=== PATIENT | male | born 1990 | race Caucasian/White ===

== ENCOUNTER 2022-05-17 15:37 | Emergency (ER) | payer MEDICARE ==
[2022-05-17 19:09] LABS: ACETAMINOPHEN 0 ug/mL (10-30); ESTIMATED GFR 104 mL/min (>60)
== END 2022-05-17 20:30 | disposition home or self-care (01) ==
LOC: JD.ED 15:37
DX: Z13.89 Encounter for screening for other disorder (principal); Z88.0 Allergy status to penicillin
CPT/HCPCS: 36415; 80053; 80143; 80179; 80306; 80307; 84443; 85025; 86140; 99283

== ENCOUNTER 2022-06-22 10:28 | Emergency (ER) | payer MEDICARE ==
[2022-06-22 13:17] LABS: CORONAVIRUS COVID-19 NAA NEGATIVE (NEGATIVE)
[2022-06-22] MEDS ORDERED: Sodium Chloride 0.9% 1,000 ML IV ONE (13:23)
[2022-06-22] MEDS ORDERED: Sodium Chloride 0.9% 10 ML Syringe FLUSH PRN (13:23)
[2022-06-22] MEDS ORDERED: HYDROmorphone 0.5 MG/0.5 ML Syringe IVPUSH ONE ×2 (13:23→16:01)
[2022-06-22] MEDS ORDERED: Sodium Chloride 0.9% 10 ML Syringe FLUSH ONE (14:13)
[2022-06-22] MEDS ORDERED: Iopamidol 612 MG/ML 100 ML Bottle IVPUSH ONE (14:13)
== END 2022-06-22 17:00 | disposition home or self-care (01) ==
LOC: JD.ED 10:28
DX: K57.32 Diverticulitis of large intestine without perforation or abscess without bleeding (principal); F17.210 Nicotine dependence, cigarettes, uncomplicated; Z88.0 Allergy status to penicillin; Z20.822 Contact with and (suspected) exposure to COVID-19
CPT/HCPCS: 0240U; 36415; 74177; 80053; 81003; 83605; 83735; 85025; 86140; 96361; 96374; 96376; 99284; J1170; J3490; J7030; Q9967

== ENCOUNTER 2022-07-18 21:33 | Emergency (ER) | payer MEDICARE ==
[2022-07-18] MEDS ORDERED: Sodium Chloride 0.9% 10 ML Syringe FLUSH PRN (21:58)
[2022-07-18] MEDS ORDERED: LORazepam 2 MG/ML SDV IVPUSH ONE ×2 (21:59→23:44)
[2022-07-18] MEDS ORDERED: Potassium Chloride 20 MEQ Tab.ER PO ONE (23:45)
[2022-07-19] MEDS ORDERED: LORazepam 2 MG/ML SDV IVPUSH ONE ×3 (00:34→05:59)
[2022-07-19] MEDS ORDERED: Sodium Chloride 0.9% 1,000 ML IV ONE (02:57)
[2022-07-19] MEDS ORDERED: Diltiazem 25 MG/5 ML SDV IVPUSH ONE (03:40)
== END 2022-07-19 09:28 ==
LOC: JD.ED 21:33
DX: T43.622A Poisoning by amphetamines, intentional self-harm, initial encounter (principal); F20.89 Other schizophrenia; Z88.0 Allergy status to penicillin; Z20.822 Contact with and (suspected) exposure to COVID-19
CPT/HCPCS: 36415; 80053; 80143; 80179; 80306; 80307; 84443; 85025; 93005; 96361; 96374; 96375; 96376; 99285; A9270; J2060; J3490; J7030; U0002; 93010

== ENCOUNTER 2022-08-09 11:29 | Emergency (ER) | payer MEDICARE ==
[2022-08-09] MEDS ORDERED: LORazepam 2 MG/ML SDV IM ONE (15:06)
== END 2022-08-09 17:00 | disposition other institution (70) ==
LOC: JD.ED 11:29
DX: F20.89 Other schizophrenia (principal); Z20.822 Contact with and (suspected) exposure to COVID-19; Z88.0 Allergy status to penicillin; Z79.899 Other long term (current) drug therapy
CPT/HCPCS: 36415; 74018; 80053; 80143; 80179; 80306; 80307; 84443; 85007; 85027; 93005; 96372; 99284; J2060; U0002; 93010; 99283

== ENCOUNTER 2022-09-07 02:12 | Emergency (ER) | payer MEDICARE ==
[2022-09-07] MEDS ORDERED: LORazepam 1 MG Tab PO ONE (02:46)
[2022-09-07] MEDS ORDERED: Prazosin 1 MG Cap PO STA (02:47)
[2022-09-07] MEDS ORDERED: Ziprasidone HCl 20 MG Cap PO STA (02:47)
[2022-09-07] MEDS ORDERED: Venlafaxine 75 MG Cap.ER PO STA (02:48)
== END 2022-09-07 05:44 | disposition home or self-care (01) ==
LOC: JD.ED 02:12
DX: R00.2 Palpitations (principal); I10 Essential (primary) hypertension; E66.9 Obesity, unspecified; Z68.41 Body mass index [BMI] 40.0-44.9, adult; Z88.0 Allergy status to penicillin; Z79.899 Other long term (current) drug therapy; Z87.891 Personal history of nicotine dependence
CPT/HCPCS: 36415; 80053; 83735; 84484; 85025; 85379; 93005; 93010; 99284; 99285

== ENCOUNTER 2022-12-18 05:23 | Emergency (ER) | payer MEDICARE ==
[2022-12-18] MEDS ORDERED: Ondansetron 4 MG/2 ML SDV IVPUSH ONE (05:38)
[2022-12-18] MEDS ORDERED: Sodium Chloride 0.9% 10 ML Syringe FLUSH PRN (05:38)
[2022-12-18] MEDS ORDERED: Sodium Chloride 0.9% 1,000 ML IV STA (05:38)
[2022-12-18] MEDS ORDERED: HYDROmorphone 0.5 MG/0.5 ML Syringe IVPUSH ONE ×2 (05:39→08:10)
[2022-12-18 07:42] LABS: ESTIMATED GFR 103 mL/min (>60)
== END 2022-12-18 08:45 | disposition home or self-care (01) ==
LOC: JD.ED 05:23
DX: K57.32 Diverticulitis of large intestine without perforation or abscess without bleeding (principal); I10 Essential (primary) hypertension; E66.9 Obesity, unspecified; Z68.30 Body mass index [BMI] 30.0-30.9, adult; Z88.0 Allergy status to penicillin
CPT/HCPCS: 36415; 74177; 80053; 83690; 85025; 96361; 96374; 96375; 96376; 99285; J1170; J2405; J3490; J7030; 36410; 99284

== ENCOUNTER 2023-01-05 10:53 | Emergency (ER) | payer MEDICARE ==
[2023-01-05] MEDS ORDERED: Lactated Ringers 1,000 ML IV ONE (12:12)
[2023-01-05] MEDS ORDERED: Morphine 4 MG/ML Syringe IVPUSH ONE (12:12)
[2023-01-05] MEDS ORDERED: metroNIDAZOLE 500 MG Tab PO ONE (15:03)
[2023-01-05] MEDS ORDERED: Acetaminophen/HYDROcodone 325-10 MG Tab PO ONE (15:08)
[2023-01-05] MEDS ORDERED: Levofloxacin 750 MG Tab PO SCH (15:15)
== END 2023-01-05 15:34 | disposition home or self-care (01) ==
LOC: JD.ED 10:53
DX: K57.32 Diverticulitis of large intestine without perforation or abscess without bleeding (principal); I10 Essential (primary) hypertension; J45.909 Unspecified asthma, uncomplicated; E66.9 Obesity, unspecified; Z68.43 Body mass index [BMI] 50.0-59.9, adult; Z72.0 Tobacco use; Z88.0 Allergy status to penicillin; Z79.899 Other long term (current) drug therapy
CPT/HCPCS: 36415; 74177; 80053; 81003; 83605; 83690; 85025; 96361; 96374; 99284; A9270; J2270; J7120

== ENCOUNTER 2023-04-03 07:09 | Emergency (ER) | payer MEDICARE ==
[2023-04-03] MEDS ORDERED: Sodium Chloride 0.9% 10 ML Syringe FLUSH PRN (07:52)
[2023-04-03] MEDS ORDERED: Ketorolac 30 MG/ML SDV IVPUSH ONE (07:53)
[2023-04-03] MEDS ORDERED: Iopamidol 755 MG/ML 50 ML Bottle IVPUSH ONE ×2 (08:00→08:01)
[2023-04-03 08:17] LABS: BASOPHILS ABSOLUTE AUTO 0.03 K/mm3 (0.01-0.08); BASOPHILS PERCENT AUTO 0.4 % (0.1-1.2); EOSINOPHILS ABSOLUTE AUTO 0.24 K/mm3 (0.04-0.54); EOSINOPHILS PERCENT AUTO 2.9 (0.8-7.0); HEMATOCRIT 46.9 % (40.1-51.0); HEMOGLOBIN 15.8 gm/dl (13.7-17.5); IMMATURE GRAN ABSOLUTE AUTO 0.01 K/mm3 (0.00-0.10); IMMATURE GRAN PERCENT AUTO 0.1 % (<=1.0); LYMPHOCYTES ABSOLUTE AUTO 2.27 K/mm3 (1.32-3.57); MEAN CORPUSCULAR HEMOGLOBIN 27.1 pg (25.7-32.2); MEAN CORPUSCULAR HGB CONC 33.7 g/dl (32.2-35.5); MEAN CORPUSCULAR VOLUME 80.6 fl (79.0-92.2); MEAN PLATELET VOLUME 8.7 fl (9.4-12.3); MONOCYTES ABSOLUTE AUTO 0.78 K/mm3 (0.30-0.82); MONOCYTES PERCENT AUTO 9.3 % (5.3-12.2); NEUTROPHILS ABSOLUTE AUTO 5.09 K/mm3 (1.78-5.38); NEUTROPHILS PERCENT AUTO 60.3 % (34.0-67.9); PLATELET COUNT,PLT 418 K/mm3 (163-337); RED BLOOD CELL COUNT 5.82 M/mm3 (4.63-6.08); WHITE BLOOD CELL COUNT,WBC 8.42 K/mm3 (4.23-9.07)
[2023-04-03 08:33] LABS: A/G RATIO 0.9 (1-2); ALBUMIN 4.1 g/dl (3.4-5.0); BILIRUBIN TOTAL 0.4 mg/dL (0.2-1.0); CALCIUM 9.6 mg/dL (8.5-10.1); EST CRCL DRUG DOSING (CG) 107.03 mL/min; PROTEIN TOTAL,TP 8.6 g/dl (6.4-8.2)
[2023-04-03 08:51] LABS: BARBITURATE SCREEN,URINE NEGATIVE ({null, CUTOFF=200}); BENZODIAZEPINES SCREEN,URINE NEGATIVE ({null, CUTOFF=150}); BUPRENORPHINE SCREEN,URINE NEGATIVE ({null, CUTOFF=10}); METHADONE SCREEN, URINE NEGATIVE ({null, CUT0FF=200}); METHAMPHETAMINES SCREEN, URINE NEGATIVE ({null, CUTOFF=500}); OXYCODONE SCREEN,URINE NEGATIVE ({null, CUT0FF=100}); PROPOXYPHENE SCREEN,URINE NEGATIVE ({null, CUTOFF=300}); THC SCREEN,URINE 20 NG/ML PRESUMPTIVE POSITIVE ({null, CUTOFF=50})
[2023-04-03 09:09] LABS: AMPHETAMINES SCREEN, URINE NEGATIVE ({null, CUTOFF=500})
[2023-04-03 09:11] LABS: APPEARANCE,URINE CLEAR (Clear); BILIRUBIN,URINE NEGATIVE (Negative); COLOR,URINE YELLOW (Yellow); GLUCOSE,URINE NEGATIVE (Negative); KETONES,URINE NEGATIVE (Negative); LEUKOCYTE ESTERASE,URINE NEGATIVE (Negative); NITRITE,URINE NEGATIVE (Negative); OCCULT BLOOD,URINE NEGATIVE (Negative); PH,URINE 8.5 (5.0-8.0); PROTEIN,URINE NEGATIVE (Negative); UROBILINOGEN,URINE 0.2 (0.2-1.0)
[2023-04-03 09:13] LABS: BACTERIA,URINE RARE /hpf (FEW); EPITHELIAL CELLS,URINE 0-5 /hpf (0-5); MUCUS,URINE NOT SEEN /hpf (FEW); RBC,URINE 0-5 /hpf (0-5); WBC,URINE 0-5 /hpf (0-5)
== END 2023-04-03 08:12 | disposition left against medical advice (07) ==
LOC: JD.ED 07:09
DX: Z76.5 Malingerer [conscious simulation] (principal); I10 Essential (primary) hypertension; J45.909 Unspecified asthma, uncomplicated; E66.9 Obesity, unspecified; Z68.30 Body mass index [BMI] 30.0-30.9, adult; Z88.0 Allergy status to penicillin; Z72.0 Tobacco use
CPT/HCPCS: 36415; 80053; 80306; 81001; 85025; 99284; J3490

== ENCOUNTER 2023-04-14 14:04 | Emergency (ER) | payer MEDICARE ==
[2023-04-14] MEDS ORDERED: Sodium Chloride 0.9% 1,000 ML IV STA (14:40)
[2023-04-14 14:50] LABS: HEMATOCRIT 40.3 % (40.1-51.0); HEMOGLOBIN 13.9 gm/dl (13.7-17.5); MEAN CORPUSCULAR HEMOGLOBIN 27.3 pg (25.7-32.2); MEAN CORPUSCULAR HGB CONC 34.5 g/dl (32.2-35.5); MEAN PLATELET VOLUME 8.8 fl (9.4-12.3); PLATELET COUNT,PLT 354 K/mm3 (163-337); WHITE BLOOD CELL COUNT,WBC 8.64 K/mm3 (4.23-9.07)
[2023-04-14 15:13] LABS: BARBITURATE SCREEN,URINE NEGATIVE (CUTOFF=200); BENZODIAZEPINES SCREEN,URINE PRESUMPTIVE POSITIVE (CUTOFF=150); BUPRENORPHINE SCREEN,URINE NEGATIVE (CUTOFF=10); METHADONE SCREEN, URINE NEGATIVE (CUT0FF=200); METHAMPHETAMINES SCREEN, URINE NEGATIVE (CUTOFF=500); OXYCODONE SCREEN,URINE NEGATIVE (CUT0FF=100); PROPOXYPHENE SCREEN,URINE NEGATIVE (CUTOFF=300); THC SCREEN,URINE 20 NG/ML NEGATIVE (CUTOFF=50)
[2023-04-14 15:16] LABS: AMPHETAMINES SCREEN, URINE NEGATIVE (CUTOFF=500)
[2023-04-14 15:19] LABS: A/G RATIO 0.9 (1-2); ALBUMIN 3.5 g/dl (3.4-5.0); ANION GAP 13.7 (5-15); BILIRUBIN TOTAL 0.4 mg/dL (0.2-1.0); CALCIUM 9.6 mg/dL (8.5-10.1); CREATININE 0.9 mg/dL (0.7-1.3); EST CRCL DRUG DOSING (CG) 118.92 mL/min; POTASSIUM,K 2.7 mEq/L (3.5-5.1); PROTEIN TOTAL,TP 7.5 g/dl (6.4-8.2); TSH 6.288 uIU/mL (0.358-3.74)
[2023-04-14 15:20] LABS: BAND PERCENT MAN 0 % (0-10); BASOPHILS PERCENT MAN 0 (0.2-1.2); EOSINOPHILS PERCENT MAN 0 % (0.8-7.0); LYMPHOCYTES % ATYPICAL MANUAL 0 %; LYMPHOCYTES PERCENT MAN 28 % (20-40); MONOCYTES PERCENT MAN 7 % (2-10); PLATELET COUNT ESTIMATE ADEQUATE
[2023-04-14] MEDS ORDERED: Potassium Chloride 20 MEQ Tab.ER PO ONE (15:43)
[2023-04-14] MEDS ORDERED: Sodium Chloride 0.9% 10 ML Syringe FLUSH ONE (16:10)
[2023-04-14] MEDS ORDERED: Iopamidol 612 MG/ML 50 ML SDV IVPUSH ONE (16:10)
[2023-04-14] MEDS ORDERED: Iopamidol 612 MG/ML 100 ML Bottle IVPUSH ONE (16:10)
[2023-04-15] MEDS ORDERED: Potassium Chloride 20 MEQ Tab.ER PO ONE (05:15)
== END 2023-04-15 06:31 | disposition home or self-care (01) ==
LOC: JD.ED 14:04 → SUPCPDRO 14:04 → JD.ED 04-15 06:31
DX: T43.591A Poisoning by other antipsychotics and neuroleptics, accidental (unintentional), initial encounter (principal); E87.6 Hypokalemia; I10 Essential (primary) hypertension; J45.909 Unspecified asthma, uncomplicated; E66.9 Obesity, unspecified; Z68.42 Body mass index [BMI] 45.0-49.9, adult; Z88.0 Allergy status to penicillin; Z79.899 Other long term (current) drug therapy
CPT/HCPCS: 36415; 74177; 80053; 80143; 80179; 80306; 80307; 84443; 85007; 85027; 93005; 96360; 96361; 99284; A9270; J3490; J7030; Q9967; 93010

== ENCOUNTER 2023-04-18 07:05 | Emergency (ER) | payer MEDICARE ==
[2023-04-18] MEDS ORDERED: LORazepam 2 MG/ML SDV IM ONE (07:34)
== END 2023-04-18 07:59 | disposition home or self-care (01) ==
LOC: JD.ED 07:05
DX: F41.9 Anxiety disorder, unspecified (principal); L98.8 Other specified disorders of the skin and subcutaneous tissue; I10 Essential (primary) hypertension; E66.9 Obesity, unspecified; Z88.0 Allergy status to penicillin; Z72.0 Tobacco use; Z68.42 Body mass index [BMI] 45.0-49.9, adult
CPT/HCPCS: 96372; 99284; J2060

== ENCOUNTER 2023-06-01 08:59 | Emergency (ER) | payer MEDICARE ==
[2023-06-01] MEDS ORDERED: LORazepam 2 MG/ML SDV IM ONE (09:45)
== END 2023-06-01 11:30 | disposition home or self-care (01) ==
LOC: JD.ED 08:59
DX: F20.89 Other schizophrenia (principal); F41.9 Anxiety disorder, unspecified; I10 Essential (primary) hypertension; E66.9 Obesity, unspecified; F17.210 Nicotine dependence, cigarettes, uncomplicated; Z88.0 Allergy status to penicillin; Z68.43 Body mass index [BMI] 50.0-59.9, adult
CPT/HCPCS: 96372; 99283; J2060

== ENCOUNTER 2023-06-26 15:48 | Emergency (ER) | payer MEDICARE ==
[2023-06-26 16:46] LABS: BARBITURATE SCREEN,URINE NEGATIVE (CUTOFF=200); BENZODIAZEPINES SCREEN,URINE NEGATIVE (CUTOFF=150); BUPRENORPHINE SCREEN,URINE NEGATIVE (CUTOFF=10); METHADONE SCREEN, URINE NEGATIVE (CUT0FF=200); METHAMPHETAMINES SCREEN, URINE NEGATIVE (CUTOFF=500); OXYCODONE SCREEN,URINE NEGATIVE (CUT0FF=100); PROPOXYPHENE SCREEN,URINE NEGATIVE (CUTOFF=300); THC SCREEN,URINE 20 NG/ML PRESUMPTIVE POSITIVE (CUTOFF=50)
[2023-06-26 16:47] LABS: AMPHETAMINES SCREEN, URINE PRESUMPTIVE POSITIVE (CUTOFF=500)
[2023-06-26] MEDS ORDERED: LORazepam 2 MG/ML SDV IM ONE (16:52)
== END 2023-06-26 20:59 | disposition home or self-care (01) ==
LOC: JD.ED 15:48
DX: F19.10 Other psychoactive substance abuse, uncomplicated (principal); I10 Essential (primary) hypertension; J45.909 Unspecified asthma, uncomplicated; E66.9 Obesity, unspecified; Z68.42 Body mass index [BMI] 45.0-49.9, adult; Z88.0 Allergy status to penicillin; Z72.0 Tobacco use
CPT/HCPCS: 36415; 80306; 80307; 96372; 99283; J2060

== ENCOUNTER 2023-06-27 13:19 | Emergency (ER) | payer MEDICARE ==
[2023-06-27] MEDS ORDERED: LORazepam 2 MG/ML SDV IM ONE (13:55)
== END 2023-06-27 14:56 ==
LOC: JD.ED 13:19
DX: F41.9 Anxiety disorder, unspecified (principal); I10 Essential (primary) hypertension; E66.9 Obesity, unspecified; Z68.30 Body mass index [BMI] 30.0-30.9, adult; Z88.0 Allergy status to penicillin; Z72.0 Tobacco use
CPT/HCPCS: 96372; 99283; J2060

== ENCOUNTER 2023-07-10 12:49 | Emergency (ER) | payer MEDICARE ==
[2023-07-10 14:12] LABS: BASOPHILS ABSOLUTE AUTO 0.02 K/mm3 (0.01-0.08); BASOPHILS PERCENT AUTO 0.2 % (0.1-1.2); EOSINOPHILS ABSOLUTE AUTO 0.05 K/mm3 (0.04-0.54); EOSINOPHILS PERCENT AUTO 0.5 (0.8-7.0); HEMATOCRIT 45.3 % (40.1-51.0); HEMOGLOBIN 15.3 gm/dl (13.7-17.5); IMMATURE GRAN ABSOLUTE AUTO 0.01 K/mm3 (0.00-0.10); IMMATURE GRAN PERCENT AUTO 0.1 % (<=1.0); LYMPHOCYTES ABSOLUTE AUTO 1.95 K/mm3 (1.32-3.57); LYMPHOCYTES PERCENT AUTO 17.6 % (21.8-53.1); MEAN CORPUSCULAR HGB CONC 33.8 g/dl (32.2-35.5); MEAN PLATELET VOLUME 9.1 fl (9.4-12.3); MONOCYTES ABSOLUTE AUTO 0.81 K/mm3 (0.30-0.82); MONOCYTES PERCENT AUTO 7.3 % (5.3-12.2); NEUTROPHILS ABSOLUTE AUTO 8.25 K/mm3 (1.78-5.38); NEUTROPHILS PERCENT AUTO 74.3 % (34.0-67.9); PLATELET COUNT,PLT 386 K/mm3 (163-337); RED BLOOD CELL COUNT 5.66 M/mm3 (4.63-6.08); WHITE BLOOD CELL COUNT,WBC 11.09 K/mm3 (4.23-9.07)
[2023-07-10 14:39] LABS: ALBUMIN 4.4 g/dl (3.4-5.0); ANION GAP 17.2 (5-15); BILIRUBIN TOTAL 0.8 mg/dL (0.2-1.0); BUN/CREATININE RATIO 12.2 (14-18); CALCIUM 9.8 mg/dL (8.5-10.1); CREATININE 0.9 mg/dL (0.7-1.3); EST CRCL DRUG DOSING (CG) 118.92 mL/min; POTASSIUM,K 3.2 mEq/L (3.5-5.1); PROTEIN TOTAL,TP 8.9 g/dl (6.4-8.2)
[2023-07-10] MEDS ORDERED: LORazepam 1 MG Tab PO ONE (14:57)
[2023-07-10 15:13] LABS: BARBITURATE SCREEN,URINE NEGATIVE (CUTOFF=200); BENZODIAZEPINES SCREEN,URINE NEGATIVE (CUTOFF=150); BUPRENORPHINE SCREEN,URINE NEGATIVE (CUTOFF=10); METHADONE SCREEN, URINE NEGATIVE (CUT0FF=200); METHAMPHETAMINES SCREEN, URINE NEGATIVE (CUTOFF=500); OXYCODONE SCREEN,URINE NEGATIVE (CUT0FF=100); PROPOXYPHENE SCREEN,URINE NEGATIVE (CUTOFF=300); THC SCREEN,URINE 20 NG/ML PRESUMPTIVE POSITIVE (CUTOFF=50)
[2023-07-10 15:17] LABS: AMPHETAMINES SCREEN, URINE PRESUMPTIVE POSITIVE (CUTOFF=500)
== END 2023-07-10 18:00 ==
LOC: JD.ED 12:49
DX: T43.621A Poisoning by amphetamines, accidental (unintentional), initial encounter (principal); F17.210 Nicotine dependence, cigarettes, uncomplicated; I10 Essential (primary) hypertension; J45.909 Unspecified asthma, uncomplicated; E66.9 Obesity, unspecified; Z68.42 Body mass index [BMI] 45.0-49.9, adult; Z88.0 Allergy status to penicillin
CPT/HCPCS: 36415; 80053; 80143; 80179; 80306; 80307; 85025; 93005; 99284; A9270; 93010; 99283

== ENCOUNTER 2023-07-12 16:42 | Emergency (ER) | payer MEDICARE ==
[2023-07-12] MEDS ORDERED: LORazepam 1 MG Tab PO ONE (16:56)
== END 2023-07-13 07:00 ==
LOC: JD.ED 16:42
DX: F41.9 Anxiety disorder, unspecified (principal); I10 Essential (primary) hypertension; E66.9 Obesity, unspecified; Z68.35 Body mass index [BMI] 35.0-35.9, adult; Z79.899 Other long term (current) drug therapy; Z88.0 Allergy status to penicillin
CPT/HCPCS: 36415; 80053; 80143; 80179; 80307; 84443; 85025; 99285; A9270; 99282; 99283

== ENCOUNTER 2023-08-26 08:17 | Inpatient (IN) | payer MEDICARE, MEDICAID ==
[2023-08-26] MEDS ORDERED: Activated Charcoal/Water Susp 50 GM/240 ML Tube PO ONE (08:50)
[2023-08-26] MEDS ORDERED: Lactated Ringers 1,000 ML IV ONE ×2 (09:07→10:00)
[2023-08-26] MEDS ORDERED: LORazepam 2 MG/ML SDV IVPUSH ONE ×2 (09:08→10:00)
[2023-08-26 09:31] LABS: BASOPHILS PERCENT AUTO 0.6 % (0.0-1.0); EOSINOPHILS ABSOLUTE AUTO 0.2 K/mm3 (0.0-0.4); EOSINOPHILS PERCENT AUTO 2.1 % (0.0-6.0); HEMATOCRIT 42.5 % (42.0-52.0); HEMOGLOBIN 14.5 gm/dl (14.0-18.0); IMMATURE GRAN ABSOLUTE AUTO 0.02 K/mm3 (0.00-0.05); IMMATURE GRAN PERCENT AUTO 0.3 % (0.0-0.4); LYMPHOCYTES PERCENT AUTO 27.5 % (24.0-44.0); MEAN CORPUSCULAR HEMOGLOBIN 28.2 pg (28.0-32.0); MEAN CORPUSCULAR HGB CONC 34.1 g/dl (32.0-36.0); MEAN CORPUSCULAR VOLUME 82.7 fl (83.0-99.0); MEAN PLATELET VOLUME 8.9 fl (9.4-12.4); MONOCYTES ABSOLUTE AUTO 0.5 K/mm3 (0.0-0.8); MONOCYTES PERCENT AUTO 6.9 % (0.0-8.0); NEUTROPHILS ABSOLUTE AUTO 4.5 K/mm3 (1.8-7.7); NEUTROPHILS PERCENT AUTO 62.6 % (41.0-71.0); PLATELET COUNT,PLT 262 K/mm3 (150-400); RED BLOOD CELL COUNT 5.14 M/mm3 (4.52-5.90); WHITE BLOOD CELL COUNT,WBC 7.24 K/mm3 (3.9-11.3)
[2023-08-26 10:21] LABS: LACTIC ACID 2.2 mmol/L (0.4-2.0)
[2023-08-26 11:39] LABS: ALBUMIN 3.7 g/dl (3.4-5.0); ANION GAP 19.3 (5-15); BILIRUBIN TOTAL 0.4 mg/dL (0.2-1.0); CALCIUM 9.4 mg/dL (8.5-10.1); CREATININE 0.8 mg/dL (0.7-1.3); EST CRCL DRUG DOSING (CG) 133.79 mL/min; POTASSIUM,K 3.3 mEq/L (3.5-5.1); PROTEIN TOTAL,TP 7.6 g/dl (6.4-8.2)
[2023-08-26 11:50] LABS: APPEARANCE,URINE CLEAR (Clear); BILIRUBIN,URINE NEGATIVE (Negative); COLOR,URINE LIGHT YELLOW (Yellow); GLUCOSE,URINE NEGATIVE (Negative); KETONES,URINE NEGATIVE (Negative); LEUKOCYTE ESTERASE,URINE NEGATIVE (Negative); NITRITE,URINE NEGATIVE (Negative); OCCULT BLOOD,URINE NEGATIVE (Negative); PH,URINE 6.5 (5.0-8.0); PROTEIN,URINE NEGATIVE (Negative); UROBILINOGEN,URINE 0.2 (0.2-1.0)
[2023-08-26 12:01] LABS: BARBITURATE SCREEN,URINE NEGATIVE (CUTOFF=200); BENZODIAZEPINES SCREEN,URINE PRESUMPTIVE POSITIVE (CUTOFF=150); BUPRENORPHINE SCREEN,URINE NEGATIVE (CUTOFF=10); METHADONE SCREEN, URINE NEGATIVE (CUT0FF=200); METHAMPHETAMINES SCREEN, URINE NEGATIVE (CUTOFF=500); OXYCODONE SCREEN,URINE NEGATIVE (CUT0FF=100); PROPOXYPHENE SCREEN,URINE NEGATIVE (CUTOFF=300); THC SCREEN,URINE 20 NG/ML PRESUMPTIVE POSITIVE (CUTOFF=50)
[2023-08-26 12:02] LABS: AMPHETAMINES SCREEN, URINE PRESUMPTIVE POSITIVE (CUTOFF=500)
[2023-08-26] MEDS ORDERED: Docusate Sodium 100 MG Cap PO PRN (12:41)
[2023-08-26] MEDS ORDERED: Ondansetron 4 MG Tab.DIS PO PRN (12:41)
[2023-08-26] MEDS ORDERED: Ondansetron 4 MG/2 ML SDV IV PRN (12:41)
[2023-08-26] MEDS: Heparin Sodium 5,000 Units/ML Vial SUBCUT SCH ×2 (13:42→20:23)
[2023-08-26] MEDS: Lactated Ringers 1,000 ML IV SCH ×2 (13:42→21:38)
[2023-08-26] MEDS: Potassium Chloride 10 MEQ in Premix Bag 1 BAG IV SCH ×4 (13:42→19:33)
[2023-08-27] MEDS: Heparin Sodium 5,000 Units/ML Vial SUBCUT SCH ×3 (04:21→20:23)
[2023-08-27] MEDS: Lactated Ringers 1,000 ML IV SCH (04:46)
[2023-08-27 06:44] LABS: BASOPHILS PERCENT AUTO 0.6 % (0.0-1.0); EOSINOPHILS ABSOLUTE AUTO 0.2 K/mm3 (0.0-0.4); EOSINOPHILS PERCENT AUTO 3.3 % (0.0-6.0); HEMATOCRIT 38.8 % (42.0-52.0); IMMATURE GRAN ABSOLUTE AUTO 0.02 K/mm3 (0.00-0.05); IMMATURE GRAN PERCENT AUTO 0.3 % (0.0-0.4); LYMPHOCYTES ABSOLUTE AUTO 2.3 K/mm3 (1.0-4.8); LYMPHOCYTES PERCENT AUTO 35.1 % (24.0-44.0); MEAN CORPUSCULAR HEMOGLOBIN 27.5 pg (28.0-32.0); MEAN CORPUSCULAR HGB CONC 32.7 g/dl (32.0-36.0); MEAN CORPUSCULAR VOLUME 84.2 fl (83.0-99.0); MONOCYTES ABSOLUTE AUTO 0.5 K/mm3 (0.0-0.8); MONOCYTES PERCENT AUTO 7.6 % (0.0-8.0); NEUTROPHILS ABSOLUTE AUTO 3.5 K/mm3 (1.8-7.7); NEUTROPHILS PERCENT AUTO 53.1 % (41.0-71.0); PLATELET COUNT,PLT 282 K/mm3 (150-400); RED BLOOD CELL COUNT 4.61 M/mm3 (4.52-5.90); WHITE BLOOD CELL COUNT,WBC 6.61 K/mm3 (3.9-11.3)
[2023-08-27 06:46] LABS: HEMOGLOBIN 12.7 gm/dl (14.0-18.0)
[2023-08-27 07:12] LABS: A/G RATIO 0.9 (1-2); ALBUMIN 3.1 g/dl (3.4-5.0); ANION GAP 8.8 (5-15); BILIRUBIN TOTAL 0.3 mg/dL (0.2-1.0); BUN/CREATININE RATIO 6.3 (14-18); CALCIUM 8.9 mg/dL (8.5-10.1); CREATININE 0.8 mg/dL (0.7-1.3); EST CRCL DRUG DOSING (CG) 133.79 mL/min; POTASSIUM,K 3.8 mEq/L (3.5-5.1); PROTEIN TOTAL,TP 6.5 g/dl (6.4-8.2)
[2023-08-28] MEDS: Heparin Sodium 5,000 Units/ML Vial SUBCUT SCH ×3 (05:10→20:46)
[2023-08-28] MEDS: LORazepam 2 MG/ML SDV IV PRN ×3 (08:50→21:10)
== END 2023-08-28 21:15 | DRG 918 ==
LOC: JD.ED 08:17 → JD.ICU 12:41
PROVIDERS: ADMIT Hospitalist; ATTEND Hospitalist
DX: T43.592A Poisoning by other antipsychotics and neuroleptics, intentional self-harm, initial encounter (principal); E87.20 Acidosis, unspecified; Z68.42 Body mass index [BMI] 45.0-49.9, adult; E87.6 Hypokalemia; F12.90 Cannabis use, unspecified, uncomplicated; E86.0 Dehydration; J45.909 Unspecified asthma, uncomplicated; F41.9 Anxiety disorder, unspecified; E11.9 Type 2 diabetes mellitus without complications; I10 Essential (primary) hypertension; F20.9 Schizophrenia, unspecified; F31.9 Bipolar disorder, unspecified; Z90.89 Acquired absence of other organs; Z88.0 Allergy status to penicillin; Z86.711 Personal history of pulmonary embolism; Z98.890 Other specified postprocedural states; E66.9 Obesity, unspecified; Z79.899 Other long term (current) drug therapy
CPT/HCPCS: 36415; 71045; 80053; 80306; 80307; 81003; 83605 ×2; 83690; 85025; 93005; 96361; 96374; 99285; J2060; J7120 ×2; 80143; 80179; 93010; 99284; A9270-GY; J1644; J3480

== ENCOUNTER 2023-09-01 22:11 | Emergency (ER) | payer MEDICARE, MEDICAID ==
[2023-09-01] MEDS ORDERED: Sodium Chloride 0.9% 10 ML Syringe FLUSH PRN (22:31)
[2023-09-01] MEDS ORDERED: HYDROmorphone 0.5 MG/0.5 ML Syringe IVPUSH ONE ×2 (22:32→23:54)
[2023-09-01] MEDS ORDERED: Sodium Chloride 0.9% 10 ML SDV FLUSH ONE (22:42)
[2023-09-01] MEDS ORDERED: Iopamidol 612 MG/ML 100 ML Bottle IVPUSH ONE (22:42)
[2023-09-01 23:02] LABS: BASOPHILS ABSOLUTE AUTO 0.1 K/mm3 (0.0-0.2); BASOPHILS PERCENT AUTO 0.7 % (0.0-1.0); EOSINOPHILS ABSOLUTE AUTO 0.3 K/mm3 (0.0-0.4); EOSINOPHILS PERCENT AUTO 2.8 % (0.0-6.0); HEMATOCRIT 43.6 % (42.0-52.0); HEMOGLOBIN 14.6 gm/dl (14.0-18.0); IMMATURE GRAN ABSOLUTE AUTO 0.02 K/mm3 (0.00-0.05); IMMATURE GRAN PERCENT AUTO 0.2 % (0.0-0.4); LYMPHOCYTES ABSOLUTE AUTO 3.6 K/mm3 (1.0-4.8); MEAN CORPUSCULAR HEMOGLOBIN 27.5 pg (28.0-32.0); MEAN CORPUSCULAR HGB CONC 33.5 g/dl (32.0-36.0); MEAN CORPUSCULAR VOLUME 82.3 fl (83.0-99.0); MONOCYTES ABSOLUTE AUTO 0.7 K/mm3 (0.0-0.8); MONOCYTES PERCENT AUTO 7.9 % (0.0-8.0); NEUTROPHILS ABSOLUTE AUTO 4.5 K/mm3 (1.8-7.7); NEUTROPHILS PERCENT AUTO 49.4 % (41.0-71.0); PLATELET COUNT,PLT 342 K/mm3 (150-400)
[2023-09-01 23:03] LABS: APPEARANCE,URINE CLEAR (Clear); BILIRUBIN,URINE NEGATIVE (Negative); COLOR,URINE YELLOW (Yellow); GLUCOSE,URINE NEGATIVE (Negative); KETONES,URINE NEGATIVE (Negative); LEUKOCYTE ESTERASE,URINE NEGATIVE (Negative); NITRITE,URINE NEGATIVE (Negative); OCCULT BLOOD,URINE NEGATIVE (Negative); PH,URINE 6.5 (5.0-8.0); PROTEIN,URINE NEGATIVE (Negative); UROBILINOGEN,URINE 0.2 (0.2-1.0)
[2023-09-01 23:13] LABS: RBC,URINE 0-5 /hpf (0-5); SQUAMOUS EPITHELIAL CELLS,UR NOT SEEN /hpf (0-5); WBC,URINE 0-5 /hpf (0-5)
[2023-09-01 23:14] LABS: BACTERIA,URINE OCCASIONAL /hpf (FEW); MUCUS,URINE NOT SEEN /hpf (FEW)
[2023-09-01 23:28] LABS: ANION GAP 16.3 (5-15); BILIRUBIN TOTAL 0.4 mg/dL (0.2-1.0); CALCIUM 9.3 mg/dL (8.5-10.1); EST CRCL DRUG DOSING (CG) 107.03 mL/min; POTASSIUM,K 3.3 mEq/L (3.5-5.1)
[2023-09-01] MEDS ORDERED: metroNIDAZOLE 500 MG Tab PO ONE (23:54)
[2023-09-01] MEDS ORDERED: Levofloxacin 500 MG Tab PO ONE (23:54)
[2023-09-02 00:07] LABS: BARBITURATE SCREEN,URINE NEGATIVE (CUTOFF=200); BENZODIAZEPINES SCREEN,URINE NEGATIVE (CUTOFF=150); BUPRENORPHINE SCREEN,URINE NEGATIVE (CUTOFF=10); METHADONE SCREEN, URINE NEGATIVE (CUT0FF=200); METHAMPHETAMINES SCREEN, URINE NEGATIVE (CUTOFF=500); OXYCODONE SCREEN,URINE NEGATIVE (CUT0FF=100); PROPOXYPHENE SCREEN,URINE NEGATIVE (CUTOFF=300); THC SCREEN,URINE 20 NG/ML NEGATIVE (CUTOFF=50)
[2023-09-02 00:13] LABS: AMPHETAMINES SCREEN, URINE NEGATIVE (CUTOFF=500)
== END 2023-09-02 00:45 | disposition home or self-care (01) ==
LOC: JD.ED 22:11
DX: K57.32 Diverticulitis of large intestine without perforation or abscess without bleeding (principal); I10 Essential (primary) hypertension; E66.9 Obesity, unspecified; F17.210 Nicotine dependence, cigarettes, uncomplicated; Z68.42 Body mass index [BMI] 45.0-49.9, adult; Z88.0 Allergy status to penicillin
CPT/HCPCS: 36415; 74177; 80053; 80306; 80307; 81001; 83690; 85025; 96374; 96376; 99284; A9270; J1170; J3490; Q9967

== ENCOUNTER 2023-09-07 19:36 | Emergency (ER) | payer MEDICARE, MEDICAID ==
[2023-09-07] MEDS ORDERED: Ketorolac 30 MG/ML SDV IVPUSH ONE (20:10)
[2023-09-07 20:25] LABS: BASOPHILS ABSOLUTE AUTO 0.1 K/mm3 (0.0-0.2); BASOPHILS PERCENT AUTO 0.7 % (0.0-1.0); EOSINOPHILS ABSOLUTE AUTO 0.2 K/mm3 (0.0-0.4); EOSINOPHILS PERCENT AUTO 3.1 % (0.0-6.0); HEMATOCRIT 42.4 % (42.0-52.0); HEMOGLOBIN 14.7 gm/dl (14.0-18.0); IMMATURE GRAN ABSOLUTE AUTO 0.02 K/mm3 (0.00-0.05); IMMATURE GRAN PERCENT AUTO 0.3 % (0.0-0.4); LYMPHOCYTES ABSOLUTE AUTO 2.9 K/mm3 (1.0-4.8); LYMPHOCYTES PERCENT AUTO 39.3 % (24.0-44.0); MEAN CORPUSCULAR HEMOGLOBIN 28.7 pg (28.0-32.0); MEAN CORPUSCULAR HGB CONC 34.7 g/dl (32.0-36.0); MEAN CORPUSCULAR VOLUME 82.7 fl (83.0-99.0); MEAN PLATELET VOLUME 8.7 fl (9.4-12.4); MONOCYTES ABSOLUTE AUTO 0.8 K/mm3 (0.0-0.8); MONOCYTES PERCENT AUTO 10.6 % (0.0-8.0); NEUTROPHILS ABSOLUTE AUTO 3.5 K/mm3 (1.8-7.7); PLATELET COUNT,PLT 320 K/mm3 (150-400); RED BLOOD CELL COUNT 5.13 M/mm3 (4.52-5.90); WHITE BLOOD CELL COUNT,WBC 7.48 K/mm3 (3.9-11.3)
[2023-09-07 20:56] LABS: ALBUMIN 3.7 g/dl (3.4-5.0); ANION GAP 14.7 (5-15); BILIRUBIN TOTAL 0.6 mg/dL (0.2-1.0); BUN/CREATININE RATIO 11.1 (14-18); C-REACTIVE PROTEIN 0.5 mg/dL (<1.0); CALCIUM 8.9 mg/dL (8.5-10.1); CREATININE 0.9 mg/dL (0.7-1.3); EST CRCL DRUG DOSING (CG) 118.92 mL/min; POTASSIUM,K 3.7 mEq/L (3.5-5.1); PROTEIN TOTAL,TP 7.5 g/dl (6.4-8.2)
[2023-09-07] MEDS ORDERED: Bisacodyl 10 MG Supp RECTAL ONE (21:29)
== END 2023-09-07 22:32 | disposition home or self-care (01) ==
LOC: JD.ED 19:36
DX: K59.00 Constipation, unspecified (principal); I10 Essential (primary) hypertension; J45.909 Unspecified asthma, uncomplicated; E66.9 Obesity, unspecified; Z68.42 Body mass index [BMI] 45.0-49.9, adult; Z79.899 Other long term (current) drug therapy; Z88.0 Allergy status to penicillin
CPT/HCPCS: 36415; 80053; 83605; 85025; 86140; 96374; 99284; A9270; J1885

== ENCOUNTER 2023-11-24 16:39 | Emergency (ER) | payer MEDICARE, MEDICAID ==
[2023-11-24] MEDS ORDERED: cefTRIAXone 1 GM Vial IM ONE (17:22)
[2023-11-24] MEDS ORDERED: Acetaminophen/oxyCODONE 325-5 MG Tab PO ONE (17:22)
[2023-11-24] MEDS ORDERED: Promethazine 6.25 MG/5 ML Liquid 10 ML UD Cup PO ONE (17:23)
[2023-11-24] MEDS ORDERED: Lidocaine 1% PF 2 ML SDV INJECT STA (17:33)
[2023-11-24] MEDS ORDERED: Lidocaine 1% 2 ML ONE (17:35)
[2023-11-24] MEDS ORDERED: Prochlorperazine 5 MG Tab PO ONE (17:43)
== END 2023-11-24 18:41 | disposition home or self-care (01) ==
LOC: JD.ED 16:39
DX: K57.32 Diverticulitis of large intestine without perforation or abscess without bleeding (principal); K04.7 Periapical abscess without sinus; K02.9 Dental caries, unspecified; F17.210 Nicotine dependence, cigarettes, uncomplicated; I10 Essential (primary) hypertension; J45.909 Unspecified asthma, uncomplicated; E66.9 Obesity, unspecified; Z79.899 Other long term (current) drug therapy; Z88.0 Allergy status to penicillin; Z68.42 Body mass index [BMI] 45.0-49.9, adult
CPT/HCPCS: 96372; 99283; A9270; J0696; Q0164; J3490

== ENCOUNTER 2023-11-29 15:18 | Emergency (ER) | payer MEDICARE, MEDICAID ==
[2023-11-29] MEDS ORDERED: HYDROmorphone 1 MG/ML Syringe IM ONE (15:45)
[2023-11-29 16:23] LABS: BASOPHILS PERCENT AUTO 0.7 % (0.0-1.0); EOSINOPHILS ABSOLUTE AUTO 0.1 K/mm3 (0.0-0.4); HEMATOCRIT 42.8 % (42.0-52.0); HEMOGLOBIN 14.5 gm/dl (14.0-18.0); IMMATURE GRAN ABSOLUTE AUTO 0.01 K/mm3 (0.00-0.05); IMMATURE GRAN PERCENT AUTO 0.2 % (0.0-0.4); LYMPHOCYTES PERCENT AUTO 33.7 % (24.0-44.0); MEAN CORPUSCULAR HEMOGLOBIN 28.9 pg (28.0-32.0); MEAN CORPUSCULAR HGB CONC 33.9 g/dl (32.0-36.0); MEAN CORPUSCULAR VOLUME 85.3 fl (83.0-99.0); MONOCYTES ABSOLUTE AUTO 0.5 K/mm3 (0.0-0.8); MONOCYTES PERCENT AUTO 8.4 % (0.0-8.0); NEUTROPHILS ABSOLUTE AUTO 3.3 K/mm3 (1.8-7.7); PLATELET COUNT,PLT 294 K/mm3 (150-400); RED BLOOD CELL COUNT 5.02 M/mm3 (4.52-5.90); WHITE BLOOD CELL COUNT,WBC 5.97 K/mm3 (3.9-11.3)
[2023-11-29 16:44] LABS: ALANINE AMINOTRANSFERASE,ALT 43 U/L (16-63); ALBUMIN 3.8 g/dl (3.4-5.0); ALKALINE PHOSPHATASE 109 U/L (46-116); ANION GAP 15.9 (5-15); ASPARTATE AMNIOTRANSFERASE,AST 25 U/L (15-37); BILIRUBIN TOTAL 0.4 mg/dL (0.2-1.0); BLOOD UREA NITROGEN,BUN 8 mg/dL (7-18); BUN/CREATININE RATIO 8.9 (14-18); C-REACTIVE PROTEIN <0.2 mg/dL (<1.0); CALCIUM 9.6 mg/dL (8.5-10.1); CARBON DIOXIDE,CO2 25 mEq/L (21-32); CHLORIDE,CL 104 mEq/L (98-107); CREATININE 0.9 mg/dL (0.7-1.3); EST CRCL DRUG DOSING (CG) 118.92 mL/min; ESTIMATED GFR 117 mL/min (>60); GLUCOSE RANDOM 102 mg/dL (70-99); POTASSIUM,K 3.9 mEq/L (3.5-5.1); PROTEIN TOTAL,TP 7.7 g/dl (6.4-8.2); SODIUM,NA 141 mEq/L (136-145)
[2023-11-29 17:15] LABS: CORONAVIRUS COVID-19 NAA NEGATIVE (NEGATIVE); INFLUENZA A NAA NEGATIVE (NEGATIVE); RESPIRATORY SYNCYTIAL VIR NAA NEGATIVE (NEGATIVE)
== END 2023-11-29 17:50 | disposition home or self-care (01) ==
LOC: JD.ED 15:18
DX: J06.9 Acute upper respiratory infection, unspecified (principal); K02.9 Dental caries, unspecified; R10.84 Generalized abdominal pain; E66.9 Obesity, unspecified; I10 Essential (primary) hypertension; Z20.822 Contact with and (suspected) exposure to COVID-19; Z79.899 Other long term (current) drug therapy; Z88.0 Allergy status to penicillin
CPT/HCPCS: 0241U; 36415; 71046; 80053; 85025; 86140; 96372; 99284; J1170

== ENCOUNTER 2023-12-01 15:48 | Emergency (ER) | payer MEDICARE, MEDICAID ==
[2023-12-01] MEDS ORDERED: Ondansetron 4 MG/2 ML SDV IVPUSH ONE (16:17)
[2023-12-01] MEDS ORDERED: Dicyclomine 20 MG/2 ML SDV IM ONE (16:17)
[2023-12-01] MEDS ORDERED: Sodium Chloride 0.9% 1,000 ML IV ONE (16:17)
[2023-12-01 16:57] LABS: MEAN CORPUSCULAR HEMOGLOBIN 27.8 pg (28.0-32.0); MEAN CORPUSCULAR HGB CONC 33.3 g/dl (32.0-36.0); MEAN CORPUSCULAR VOLUME 83.5 fl (83.0-99.0); PLATELET COUNT,PLT 334 K/mm3 (150-400); RED BLOOD CELL COUNT 5.39 M/mm3 (4.52-5.90); WHITE BLOOD CELL COUNT,WBC 7.73 K/mm3 (3.9-11.3)
[2023-12-01 17:28] LABS: ALBUMIN 3.8 g/dl (3.4-5.0); BILIRUBIN TOTAL 0.8 mg/dL (0.2-1.0); BUN/CREATININE RATIO 13.3 (14-18); CREATININE 0.9 mg/dL (0.7-1.3); EST CRCL DRUG DOSING (CG) 118.92 mL/min; MAGNESIUM 1.9 mg/dL (1.8-2.4); PROTEIN TOTAL,TP 7.6 g/dl (6.4-8.2)
== END 2023-12-01 18:18 | disposition home or self-care (01) ==
LOC: JD.ED 15:48
DX: R11.10 Vomiting, unspecified (principal); R19.7 Diarrhea, unspecified; I10 Essential (primary) hypertension; J45.909 Unspecified asthma, uncomplicated; E66.9 Obesity, unspecified; Z79.899 Other long term (current) drug therapy; Z88.0 Allergy status to penicillin
CPT/HCPCS: 36415; 80053; 80307; 83605; 83690; 83735; 85027; 96361; 96372; 96374; 99284; J0500; J2405; J7030

== ENCOUNTER 2024-01-02 10:27 | Emergency (ER) | payer MEDICARE, MEDICAID ==
[2024-01-02] MEDS ORDERED: Ketorolac 30 MG/ML SDV IM ONE (11:08)
[2024-01-02] MEDS: Ketorolac 15 MG/ML SDV IM ONE (11:19)
[2024-01-02] MEDS: LORazepam 2 MG/ML SDV IM ONE (11:20)
== END 2024-01-02 11:49 | disposition home or self-care (01) ==
LOC: JD.ED 10:27
DX: F41.9 Anxiety disorder, unspecified (principal); I10 Essential (primary) hypertension; J45.909 Unspecified asthma, uncomplicated; E66.9 Obesity, unspecified; Z88.0 Allergy status to penicillin; Z79.899 Other long term (current) drug therapy; Z68.42 Body mass index [BMI] 45.0-49.9, adult
CPT/HCPCS: 96372; 99283; J1885; J2060

== ENCOUNTER 2024-03-05 08:27 | Emergency (ER) | payer MEDICARE, MEDICAID, OTHER ==
[2024-03-05] MEDS ORDERED: Sodium Chloride 0.9% 10 ML Syringe FLUSH PRN (08:48)
[2024-03-05 09:11] LABS: BASOPHILS PERCENT AUTO 0.6 % (0.0-1.0); EOSINOPHILS ABSOLUTE AUTO 0.2 K/mm3 (0.0-0.4); HEMATOCRIT 41.5 % (42.0-52.0); HEMOGLOBIN 14.5 gm/dl (14.0-18.0); IMMATURE GRAN ABSOLUTE AUTO 0.01 K/mm3 (0.00-0.05); IMMATURE GRAN PERCENT AUTO 0.2 % (0.0-0.4); LYMPHOCYTES ABSOLUTE AUTO 2.7 K/mm3 (1.0-4.8); LYMPHOCYTES PERCENT AUTO 43.3 % (24.0-44.0); MEAN CORPUSCULAR HEMOGLOBIN 29.2 pg (28.0-32.0); MEAN CORPUSCULAR HGB CONC 34.9 g/dl (32.0-36.0); MEAN CORPUSCULAR VOLUME 83.7 fl (83.0-99.0); MEAN PLATELET VOLUME 8.8 fl (9.4-12.4); MONOCYTES ABSOLUTE AUTO 0.7 K/mm3 (0.0-0.8); MONOCYTES PERCENT AUTO 10.8 % (0.0-8.0); NEUTROPHILS ABSOLUTE AUTO 2.7 K/mm3 (1.8-7.7); NEUTROPHILS PERCENT AUTO 42.1 % (41.0-71.0); PLATELET COUNT,PLT 322 K/mm3 (150-400); RED BLOOD CELL COUNT 4.96 M/mm3 (4.52-5.90)
[2024-03-05 09:32] LABS: INR 0.96; PROTHROMBIN TIME 10.3 SECONDS (9.7-12.0)
[2024-03-05 09:34] LABS: D-DIMER QUANTITATIVE < 0.19 mg/L (0.19-0.50)
[2024-03-05 09:56] LABS: A/G RATIO 1.2 (1-2); ALANINE AMINOTRANSFERASE,ALT 26 U/L (16-63); ALBUMIN 4.3 g/dl (3.4-5.0); ALKALINE PHOSPHATASE 96 U/L (46-116); ANION GAP 15.6 (5-15); ASPARTATE AMNIOTRANSFERASE,AST 18 U/L (15-37); BLOOD UREA NITROGEN,BUN 14 mg/dL (7-18); CALCIUM 9.4 mg/dL (8.5-10.1); CARBON DIOXIDE,CO2 23 mEq/L (21-32); CHLORIDE,CL 104 mEq/L (98-107); ESTIMATED GFR 103 mL/min (>60); GLUCOSE RANDOM 88 mg/dL (70-99); MAGNESIUM 1.9 mg/dL (1.8-2.4); POTASSIUM,K 3.6 mEq/L (3.5-5.1); PROTEIN TOTAL,TP 7.8 g/dl (6.4-8.2); SODIUM,NA 139 mEq/L (136-145)
[2024-03-05 10:15] LABS: TROPONIN I HIGH SENSITIVITY < 4 pg/mL (<=76)
[2024-03-05] MEDS ORDERED: ALPRAZolam 0.25 MG Tab PO ONE (10:29)
[2024-03-05] MEDS: ALPRAZolam 0.5 MG Tab PO ONE (10:44)
== END 2024-03-05 11:15 | disposition home or self-care (01) ==
LOC: JD.ED 08:27
DX: F41.9 Anxiety disorder, unspecified (principal); I10 Essential (primary) hypertension; E66.9 Obesity, unspecified; E78.00 Pure hypercholesterolemia, unspecified; Z88.0 Allergy status to penicillin; Z79.899 Other long term (current) drug therapy; Z86.19 Personal history of other infectious and parasitic diseases; Z91.198 Patient's noncompliance with other medical treatment and regimen for other reason; Z68.42 Body mass index [BMI] 45.0-49.9, adult
CPT/HCPCS: 36415; 71045; 80053; 83735; 84484; 85025; 85379; 85610; 93005; 99285; A9270

== ENCOUNTER 2024-03-21 07:57 | Emergency (ER) | payer MEDICARE, MEDICAID ==
[2024-03-21] MEDS: Sodium Chloride 0.9% 10 ML Syringe FLUSH PRN (08:28)
[2024-03-21] MEDS: Ondansetron 4 MG/2 ML SDV IVPUSH ONE (08:28)
[2024-03-21] MEDS: Sodium Chloride 0.9% 1,000 ML IV STA (08:28)
[2024-03-21 08:29] LABS: BASOPHILS PERCENT AUTO 0.5 % (0.0-1.0); EOSINOPHILS ABSOLUTE AUTO 0.2 K/mm3 (0.0-0.4); HEMATOCRIT 43.1 % (42.0-52.0); HEMOGLOBIN 14.9 gm/dl (14.0-18.0); IMMATURE GRAN ABSOLUTE AUTO 0.01 K/mm3 (0.00-0.05); IMMATURE GRAN PERCENT AUTO 0.1 % (0.0-0.4); LYMPHOCYTES ABSOLUTE AUTO 2.6 K/mm3 (1.0-4.8); LYMPHOCYTES PERCENT AUTO 35.7 % (24.0-44.0); MEAN CORPUSCULAR HGB CONC 34.6 g/dl (32.0-36.0); MEAN CORPUSCULAR VOLUME 83.9 fl (83.0-99.0); MEAN PLATELET VOLUME 8.8 fl (9.4-12.4); MONOCYTES ABSOLUTE AUTO 0.6 K/mm3 (0.0-0.8); MONOCYTES PERCENT AUTO 7.5 % (0.0-8.0); NEUTROPHILS PERCENT AUTO 54.2 % (41.0-71.0); PLATELET COUNT,PLT 299 K/mm3 (150-400); RED BLOOD CELL COUNT 5.14 M/mm3 (4.52-5.90); WHITE BLOOD CELL COUNT,WBC 7.36 K/mm3 (3.9-11.3)
[2024-03-21] MEDS: HYDROmorphone 0.5 MG/0.5 ML Syringe IVPUSH ONE (08:29)
[2024-03-21 08:50] LABS: A/G RATIO 1.2 (1-2); ANION GAP 13.4 (5-15); BILIRUBIN TOTAL 0.7 mg/dL (0.2-1.0); CALCIUM 8.9 mg/dL (8.5-10.1); EST CRCL DRUG DOSING (CG) 106.05 mL/min; POTASSIUM,K 3.4 mEq/L (3.5-5.1); PROTEIN TOTAL,TP 7.4 g/dl (6.4-8.2)
[2024-03-21] MEDS: Iopamidol 612 MG/ML 30 ML SDV IVPUSH ONE (09:03)
[2024-03-21 09:09] LABS: APPEARANCE,URINE CLEAR (Clear); BILIRUBIN,URINE NEGATIVE (Negative); COLOR,URINE YELLOW (Yellow); GLUCOSE,URINE NEGATIVE (Negative); KETONES,URINE NEGATIVE (Negative); LEUKOCYTE ESTERASE,URINE NEGATIVE (Negative); NITRITE,URINE NEGATIVE (Negative); OCCULT BLOOD,URINE NEGATIVE (Negative); PROTEIN,URINE NEGATIVE (Negative); UROBILINOGEN,URINE 0.2 (0.2-1.0)
[2024-03-21 09:15] LABS: EPITHELIAL CELLS,URINE 0-5 /hpf (0-5); RBC,URINE 0-5 /hpf (0-5); WBC,URINE 0-5 /hpf (0-5)
[2024-03-21 09:16] LABS: BACTERIA,URINE RARE /hpf (FEW); MUCUS,URINE RARE /hpf (FEW)
== END 2024-03-21 10:10 | disposition home or self-care (01) ==
LOC: JD.ED 07:57
DX: K52.9 Noninfective gastroenteritis and colitis, unspecified (principal); I10 Essential (primary) hypertension; E78.00 Pure hypercholesterolemia, unspecified; J45.909 Unspecified asthma, uncomplicated; E66.9 Obesity, unspecified; Z68.41 Body mass index [BMI] 40.0-44.9, adult; Z88.0 Allergy status to penicillin; Z79.51 Long term (current) use of inhaled steroids; Z79.899 Other long term (current) drug therapy
CPT/HCPCS: 36415; 74177; 80053; 81001; 83690; 85025; 96361; 96374; 96375; 99284; J1170; J2405; J3490; J7030; Q9967

== ENCOUNTER 2024-03-30 18:24 | Emergency (ER) | payer MEDICARE, MEDICAID ==
[2024-03-30] MEDS: LORazepam 2 MG/ML SDV IM ONE (19:41)
[2024-03-30] MEDS: Ketorolac 60 MG/2 ML SDV IM ONE (19:41)
== END 2024-03-30 20:42 | disposition home or self-care (01) ==
LOC: JD.ED 18:24
DX: F20.9 Schizophrenia, unspecified (principal); F41.9 Anxiety disorder, unspecified; I10 Essential (primary) hypertension; E78.00 Pure hypercholesterolemia, unspecified; J45.909 Unspecified asthma, uncomplicated; E66.9 Obesity, unspecified; Z79.899 Other long term (current) drug therapy; Z88.0 Allergy status to penicillin; Z68.38 Body mass index [BMI] 38.0-38.9, adult
CPT/HCPCS: 96372; 99283; J1885; J2060

== ENCOUNTER 2024-04-04 12:30 | Emergency (ER) | payer MEDICARE, MEDICAID ==
[2024-04-04 14:26] LABS: BASOPHILS PERCENT AUTO 0.4 % (0.0-1.0); EOSINOPHILS ABSOLUTE AUTO 0.1 K/mm3 (0.0-0.4); EOSINOPHILS PERCENT AUTO 1.1 % (0.0-6.0); HEMATOCRIT 39.7 % (42.0-52.0); HEMOGLOBIN 13.7 gm/dl (14.0-18.0); IMMATURE GRAN ABSOLUTE AUTO 0.03 K/mm3 (0.00-0.05); IMMATURE GRAN PERCENT AUTO 0.3 % (0.0-0.4); LYMPHOCYTES ABSOLUTE AUTO 2.6 K/mm3 (1.0-4.8); LYMPHOCYTES PERCENT AUTO 26.7 % (24.0-44.0); MEAN CORPUSCULAR HEMOGLOBIN 28.7 pg (28.0-32.0); MEAN CORPUSCULAR HGB CONC 34.5 g/dl (32.0-36.0); MEAN CORPUSCULAR VOLUME 83.1 fl (83.0-99.0); MEAN PLATELET VOLUME 8.9 fl (9.4-12.4); MONOCYTES ABSOLUTE AUTO 0.6 K/mm3 (0.0-0.8); MONOCYTES PERCENT AUTO 6.3 % (0.0-8.0); NEUTROPHILS ABSOLUTE AUTO 6.3 K/mm3 (1.8-7.7); NEUTROPHILS PERCENT AUTO 65.2 % (41.0-71.0); PLATELET COUNT,PLT 276 K/mm3 (150-400); RED BLOOD CELL COUNT 4.78 M/mm3 (4.52-5.90); WHITE BLOOD CELL COUNT,WBC 9.68 K/mm3 (3.9-11.3)
[2024-04-04 14:28] LABS: APPEARANCE,URINE CLEAR (Clear); BILIRUBIN,URINE NEGATIVE (Negative); COLOR,URINE YELLOW (Yellow); GLUCOSE,URINE NEGATIVE (Negative); KETONES,URINE NEGATIVE (Negative); LEUKOCYTE ESTERASE,URINE NEGATIVE (Negative); NITRITE,URINE NEGATIVE (Negative); OCCULT BLOOD,URINE NEGATIVE (Negative); PH,URINE 6.5 (5.0-8.0); PROTEIN,URINE NEGATIVE (Negative); UROBILINOGEN,URINE 0.2 (0.2-1.0)
[2024-04-04 14:36] LABS: AMPHETAMINES SCREEN, URINE NEGATIVE (CUTOFF=500); BARBITURATE SCREEN,URINE NEGATIVE (CUTOFF=200); BENZODIAZEPINES SCREEN,URINE NEGATIVE (CUTOFF=150); BUPRENORPHINE SCREEN,URINE NEGATIVE (CUTOFF=10); METHADONE SCREEN, URINE NEGATIVE (CUT0FF=200); METHAMPHETAMINES SCREEN, URINE NEGATIVE (CUTOFF=500); OXYCODONE SCREEN,URINE NEGATIVE (CUT0FF=100); THC SCREEN,URINE 20 NG/ML PRESUMPTIVE POSITIVE (CUTOFF=50)
[2024-04-04 14:52] LABS: INR 0.93
[2024-04-04 15:04] LABS: A/G RATIO 1.1 (1-2); ALBUMIN 3.6 g/dl (3.4-5.0); ANION GAP 12.3 (5-15); BILIRUBIN TOTAL 0.3 mg/dL (0.2-1.0); BUN/CREATININE RATIO 12.2 (14-18); CALCIUM 9.2 mg/dL (8.5-10.1); CREATININE 0.9 mg/dL (0.7-1.3); EST CRCL DRUG DOSING (CG) 117.83 mL/min; POTASSIUM,K 3.3 mEq/L (3.5-5.1); PROTEIN TOTAL,TP 6.8 g/dl (6.4-8.2)
[2024-04-04] MEDS ORDERED: Levofloxacin/Dextrose 5%-Water 750 MG in Premix Bag 1 BAG IV ONE (16:42)
[2024-04-04] MEDS: QUEtiapine 25 MG Tab PO ONE (19:35)
[2024-04-04] MEDS: LORazepam 1 MG Tab PO ONE (19:35)
== END 2024-04-05 05:40 ==
LOC: JD.ED 12:30
DX: R45.851 Suicidal ideations (principal); R44.1 Visual hallucinations; F23 Brief psychotic disorder; F15.90 Other stimulant use, unspecified, uncomplicated; Z02.89 Encounter for other administrative examinations; I10 Essential (primary) hypertension; J45.909 Unspecified asthma, uncomplicated; E78.00 Pure hypercholesterolemia, unspecified; E66.9 Obesity, unspecified; Z88.0 Allergy status to penicillin; Z79.899 Other long term (current) drug therapy; Z68.42 Body mass index [BMI] 45.0-49.9, adult
CPT/HCPCS: 36415; 74176; 80053; 80143; 80179; 80306; 80307; 81003; 83735; 85025; 85610; 93005; 99285; A9270; 93010

== ENCOUNTER 2024-04-08 21:22 | Emergency (ER) | payer MEDICARE, MEDICAID ==
[2024-04-08] MEDS: Ketorolac 30 MG/ML SDV IM ONE (22:33)
[2024-04-08 22:52] LABS: BASOPHILS ABSOLUTE AUTO 0.1 K/mm3 (0.0-0.2); BASOPHILS PERCENT AUTO 0.6 % (0.0-1.0); EOSINOPHILS ABSOLUTE AUTO 0.1 K/mm3 (0.0-0.4); EOSINOPHILS PERCENT AUTO 1.4 % (0.0-6.0); HEMATOCRIT 42.9 % (42.0-52.0); HEMOGLOBIN 14.9 gm/dl (14.0-18.0); IMMATURE GRAN ABSOLUTE AUTO 0.03 K/mm3 (0.00-0.05); IMMATURE GRAN PERCENT AUTO 0.3 % (0.0-0.4); LYMPHOCYTES ABSOLUTE AUTO 3.1 K/mm3 (1.0-4.8); LYMPHOCYTES PERCENT AUTO 32.3 % (24.0-44.0); MEAN CORPUSCULAR HEMOGLOBIN 28.9 pg (28.0-32.0); MEAN CORPUSCULAR HGB CONC 34.7 g/dl (32.0-36.0); MEAN CORPUSCULAR VOLUME 83.3 fl (83.0-99.0); MEAN PLATELET VOLUME 8.7 fl (9.4-12.4); MONOCYTES ABSOLUTE AUTO 0.6 K/mm3 (0.0-0.8); MONOCYTES PERCENT AUTO 5.9 % (0.0-8.0); NEUTROPHILS ABSOLUTE AUTO 5.7 K/mm3 (1.8-7.7); NEUTROPHILS PERCENT AUTO 59.5 % (41.0-71.0); PLATELET COUNT,PLT 301 K/mm3 (150-400); RED BLOOD CELL COUNT 5.15 M/mm3 (4.52-5.90); WHITE BLOOD CELL COUNT,WBC 9.58 K/mm3 (3.9-11.3)
[2024-04-08 23:14] LABS: ALBUMIN 3.8 g/dl (3.4-5.0); ANION GAP 17.3 (5-15); BILIRUBIN TOTAL 0.6 mg/dL (0.2-1.0); CALCIUM 9.4 mg/dL (8.5-10.1); EST CRCL DRUG DOSING (CG) 102.6 mL/min; POTASSIUM,K 3.3 mEq/L (3.5-5.1); PROTEIN TOTAL,TP 7.5 g/dl (6.4-8.2)
[2024-04-08 23:16] LABS: ETHANOL BLOOD MEDICAL 0.04 gm% (0.00)
[2024-04-08 23:37] LABS: AMPHETAMINES SCREEN, URINE NEGATIVE (CUTOFF=500)
[2024-04-08 23:38] LABS: BARBITURATE SCREEN,URINE NEGATIVE (CUTOFF=200); BENZODIAZEPINES SCREEN,URINE PRESUMPTIVE POSITIVE (CUTOFF=150); BUPRENORPHINE SCREEN,URINE NEGATIVE (CUTOFF=10); METHADONE SCREEN, URINE NEGATIVE (CUT0FF=200); METHAMPHETAMINES SCREEN, URINE NEGATIVE (CUTOFF=500); OXYCODONE SCREEN,URINE NEGATIVE (CUT0FF=100); THC SCREEN,URINE 20 NG/ML PRESUMPTIVE POSITIVE (CUTOFF=50)
== END 2024-04-09 05:30 | disposition home or self-care (01) ==
LOC: JD.ED 21:22
DX: Z02.89 Encounter for other administrative examinations (principal); E78.00 Pure hypercholesterolemia, unspecified; I10 Essential (primary) hypertension; J45.909 Unspecified asthma, uncomplicated; Z88.0 Allergy status to penicillin; Z79.899 Other long term (current) drug therapy; Z79.51 Long term (current) use of inhaled steroids; Z86.19 Personal history of other infectious and parasitic diseases; E66.9 Obesity, unspecified; Z68.36 Body mass index [BMI] 36.0-36.9, adult
CPT/HCPCS: 36415; 80053; 80143; 80179; 80306; 80307; 85025; 96372; 99283; J1885

== ENCOUNTER 2024-04-15 11:15 | Emergency (ER) | payer MEDICARE, MEDICAID ==
[2024-04-15] MEDS: QUEtiapine 25 MG Tab PO ONE (11:55)
[2024-04-15] MEDS: Ketorolac 60 MG/2 ML SDV IM ONE (11:55)
[2024-04-15] MEDS: LORazepam 0.5 MG Tab PO ONE (11:55)
== END 2024-04-15 12:30 | disposition home or self-care (01) ==
LOC: JD.ED 11:15
DX: F41.9 Anxiety disorder, unspecified (principal); F20.9 Schizophrenia, unspecified; G44.209 Tension-type headache, unspecified, not intractable; E78.00 Pure hypercholesterolemia, unspecified; I10 Essential (primary) hypertension; J45.909 Unspecified asthma, uncomplicated; F17.210 Nicotine dependence, cigarettes, uncomplicated; Z88.0 Allergy status to penicillin; Z79.51 Long term (current) use of inhaled steroids; Z79.899 Other long term (current) drug therapy; Z86.19 Personal history of other infectious and parasitic diseases
CPT/HCPCS: 96372; 99283; A9270; J1885

== ENCOUNTER 2024-05-09 18:25 | Emergency (ER) | payer MEDICARE, MEDICAID ==
[2024-05-09] MEDS: Ketorolac 30 MG/ML SDV IVPUSH ONE (18:45)
[2024-05-09] MEDS: Sodium Chloride 0.9% 1,000 ML IV STA (18:45)
[2024-05-09] MEDS: Sodium Chloride 0.9% 10 ML Syringe FLUSH PRN ×2 (18:45→19:24)
[2024-05-09 18:52] LABS: BASOPHILS ABSOLUTE AUTO 0.1 K/mm3 (0.0-0.2); BASOPHILS PERCENT AUTO 0.6 % (0.0-1.0); EOSINOPHILS ABSOLUTE AUTO 0.2 K/mm3 (0.0-0.4); EOSINOPHILS PERCENT AUTO 2.6 % (0.0-6.0); HEMATOCRIT 43.3 % (42.0-52.0); HEMOGLOBIN 15.3 gm/dl (14.0-18.0); IMMATURE GRAN ABSOLUTE AUTO 0.02 K/mm3 (0.00-0.05); IMMATURE GRAN PERCENT AUTO 0.2 % (0.0-0.4); LYMPHOCYTES ABSOLUTE AUTO 3.4 K/mm3 (1.0-4.8); LYMPHOCYTES PERCENT AUTO 36.3 % (24.0-44.0); MEAN CORPUSCULAR HGB CONC 35.3 g/dl (32.0-36.0); MEAN CORPUSCULAR VOLUME 82.2 fl (83.0-99.0); MEAN PLATELET VOLUME 9.2 fl (9.4-12.4); MONOCYTES ABSOLUTE AUTO 0.7 K/mm3 (0.0-0.8); MONOCYTES PERCENT AUTO 7.7 % (0.0-8.0); NEUTROPHILS PERCENT AUTO 52.6 % (41.0-71.0); PLATELET COUNT,PLT 316 K/mm3 (150-400); RED BLOOD CELL COUNT 5.27 M/mm3 (4.52-5.90)
[2024-05-09 19:14] LABS: A/G RATIO 1.1 (1-2); ALBUMIN 3.9 g/dl (3.4-5.0); ALKALINE PHOSPHATASE 108 U/L (46-116); ANION GAP 14.7 (5-15); BILIRUBIN TOTAL 0.4 mg/dL (0.2-1.0); BLOOD UREA NITROGEN,BUN 13 mg/dL (7-18); CALCIUM 8.7 mg/dL (8.5-10.1); CARBON DIOXIDE,CO2 26 mEq/L (21-32); CHLORIDE,CL 104 mEq/L (98-107); ESTIMATED GFR 103 mL/min (>60); LIPASE 117 U/L (16-77); PROTEIN TOTAL,TP 7.5 g/dl (6.4-8.2); SODIUM,NA 141 mEq/L (136-145)
[2024-05-09 19:16] LABS: GLUCOSE RANDOM 89 mg/dL (70-99); POTASSIUM,K 3.7 mEq/L (3.5-5.1)
[2024-05-09] MEDS: Iopamidol 612 MG/ML 100 ML Bottle IVPUSH ONE (19:22)
[2024-05-09 19:24] LABS: APPEARANCE,URINE CLEAR (Clear); BILIRUBIN,URINE NEGATIVE (Negative); COLOR,URINE LIGHT YELLOW (Yellow); GLUCOSE,URINE NEGATIVE (Negative); KETONES,URINE NEGATIVE (Negative); LEUKOCYTE ESTERASE,URINE NEGATIVE (Negative); NITRITE,URINE NEGATIVE (Negative); OCCULT BLOOD,URINE NEGATIVE (Negative); PH,URINE 7.5 (5.0-8.0); PROTEIN,URINE NEGATIVE (Negative); UROBILINOGEN,URINE 0.2 (0.2-1.0)
[2024-05-09 19:48] LABS: AMPHETAMINES SCREEN, URINE NEGATIVE (CUTOFF=500); BARBITURATE SCREEN,URINE NEGATIVE (CUTOFF=200); BENZODIAZEPINES SCREEN,URINE PRESUMPTIVE POSITIVE (CUTOFF=150); BUPRENORPHINE SCREEN,URINE NEGATIVE (CUTOFF=10); METHADONE SCREEN, URINE NEGATIVE (CUT0FF=200); METHAMPHETAMINES SCREEN, URINE NEGATIVE (CUTOFF=500); OXYCODONE SCREEN,URINE NEGATIVE (CUT0FF=100); THC SCREEN,URINE 20 NG/ML PRESUMPTIVE POSITIVE (CUTOFF=50)
[2024-05-09] MEDS: HYDROmorphone 0.5 MG/0.5 ML Syringe IVPUSH ONE (19:51)
[2024-05-09] MEDS: metroNIDAZOLE 500 MG Tab PO ONE (20:50)
[2024-05-09] MEDS: Acetaminophen/HYDROcodone 325-5 MG Tab PO ONE (20:50)
[2024-05-09] MEDS: Sulfamethoxazole/Trimethoprim 800-160 MG Tab PO ONE (20:50)
== END 2024-05-09 20:54 | disposition home or self-care (01) ==
LOC: JD.ED 18:25
DX: K57.32 Diverticulitis of large intestine without perforation or abscess without bleeding (principal); F17.210 Nicotine dependence, cigarettes, uncomplicated; E78.00 Pure hypercholesterolemia, unspecified; I10 Essential (primary) hypertension; J45.909 Unspecified asthma, uncomplicated; E66.9 Obesity, unspecified; Z79.899 Other long term (current) drug therapy; Z88.0 Allergy status to penicillin
CPT/HCPCS: 36415; 74177; 74177-26; 80053; 80306; 81003; 83690; 85025; 86140; 96361; 96374; 96375; 99284; 99285-25; A9270-GY; J1170; J1885; J3490; J7030; Q9967

== ENCOUNTER 2024-05-30 12:55 | Emergency (ER) | payer MEDICARE, MEDICAID ==
[2024-05-30 13:37] LABS: BASOPHILS PERCENT AUTO 0.6 % (0.0-1.0); EOSINOPHILS ABSOLUTE AUTO 0.1 K/mm3 (0.0-0.4); EOSINOPHILS PERCENT AUTO 1.9 % (0.0-6.0); HEMATOCRIT 44.1 % (42.0-52.0); HEMOGLOBIN 15.4 gm/dl (14.0-18.0); IMMATURE GRAN ABSOLUTE AUTO 0.01 K/mm3 (0.00-0.05); IMMATURE GRAN PERCENT AUTO 0.1 % (0.0-0.4); LYMPHOCYTES ABSOLUTE AUTO 2.9 K/mm3 (1.0-4.8); LYMPHOCYTES PERCENT AUTO 42.1 % (24.0-44.0); MEAN CORPUSCULAR HEMOGLOBIN 28.9 pg (28.0-32.0); MEAN CORPUSCULAR HGB CONC 34.9 g/dl (32.0-36.0); MEAN CORPUSCULAR VOLUME 82.7 fl (83.0-99.0); MEAN PLATELET VOLUME 8.9 fl (9.4-12.4); MONOCYTES ABSOLUTE AUTO 0.6 K/mm3 (0.0-0.8); NEUTROPHILS ABSOLUTE AUTO 3.3 K/mm3 (1.8-7.7); NEUTROPHILS PERCENT AUTO 47.3 % (41.0-71.0); PLATELET COUNT,PLT 290 K/mm3 (150-400); RED BLOOD CELL COUNT 5.33 M/mm3 (4.52-5.90); WHITE BLOOD CELL COUNT,WBC 6.96 K/mm3 (3.9-11.3)
[2024-05-30 13:47] LABS: APPEARANCE,URINE CLEAR (Clear); BILIRUBIN,URINE NEGATIVE (Negative); COLOR,URINE YELLOW (Yellow); GLUCOSE,URINE NEGATIVE (Negative); KETONES,URINE NEGATIVE (Negative); LEUKOCYTE ESTERASE,URINE NEGATIVE (Negative); NITRITE,URINE NEGATIVE (Negative); OCCULT BLOOD,URINE NEGATIVE (Negative); PROTEIN,URINE 1+ (Negative); UROBILINOGEN,URINE 0.2 (0.2-1.0)
[2024-05-30 13:53] LABS: EPITHELIAL CELLS,URINE 0-5 /hpf (0-5); RBC,URINE 0-5 /hpf (0-5); WBC,URINE 0-5 /hpf (0-5)
[2024-05-30 13:54] LABS: BACTERIA,URINE RARE /hpf (FEW); MUCUS,URINE RARE /hpf (FEW)
[2024-05-30 14:00] LABS: A/G RATIO 1.2 (1-2); ALBUMIN 4.2 g/dl (3.4-5.0); ANION GAP 13.9 (5-15); BILIRUBIN TOTAL 0.7 mg/dL (0.2-1.0); CALCIUM 9.5 mg/dL (8.5-10.1); EST CRCL DRUG DOSING (CG) 106.05 mL/min; POTASSIUM,K 3.9 mEq/L (3.5-5.1); PROTEIN TOTAL,TP 7.6 g/dl (6.4-8.2)
[2024-05-30 14:02] LABS: LACTIC ACID 1.1 mmol/L (0.4-2.0)
[2024-05-30] MEDS: Sodium Chloride 0.9% 1,000 ML IV ONE ×2 (14:07→16:00)
[2024-05-30] MEDS: Ondansetron 4 MG/2 ML SDV IVPUSH ONE (14:08)
[2024-05-30] MEDS: Morphine 4 MG/ML Syringe IVPUSH ONE (14:10)
[2024-05-30] MEDS: metroNIDAZOLE/Normal Saline 500 MG in Premix Bag 1 BAG IV ONE (16:06)
[2024-05-30] MEDS: Morphine 4 MG/ML Syringe IM ONE (16:19)
[2024-05-30] MEDS: Levofloxacin/Dextrose 5%-Water 750 MG in Premix Bag 1 BAG IV ONE (16:22)
== END 2024-05-30 18:24 | disposition home or self-care (01) ==
LOC: JD.ED 12:55
DX: K57.32 Diverticulitis of large intestine without perforation or abscess without bleeding (principal); I10 Essential (primary) hypertension; J45.909 Unspecified asthma, uncomplicated; F17.210 Nicotine dependence, cigarettes, uncomplicated; E66.9 Obesity, unspecified; Z68.42 Body mass index [BMI] 45.0-49.9, adult; Z88.0 Allergy status to penicillin
CPT/HCPCS: 36415; 74176; 80053; 81001; 83605; 83690; 85025; 96361; 96365; 96367; 96372; 96375; 99284; J1836; J1956; J2270; J2405; J7030

== ENCOUNTER 2024-06-14 02:33 | Emergency (ER) | payer MEDICARE, MEDICAID ==
[2024-06-14] MEDS ORDERED: Iopamidol 612 MG/ML 30 ML SDV IVPUSH ONE (04:01)
[2024-06-14 04:02] LABS: APPEARANCE,URINE CLEAR (Clear); BILIRUBIN,URINE NEGATIVE (Negative); COLOR,URINE YELLOW (Yellow); GLUCOSE,URINE NEGATIVE (Negative); KETONES,URINE NEGATIVE (Negative); LEUKOCYTE ESTERASE,URINE NEGATIVE (Negative); NITRITE,URINE NEGATIVE (Negative); OCCULT BLOOD,URINE NEGATIVE (Negative); PH,URINE 6.5 (5.0-8.0); PROTEIN,URINE NEGATIVE (Negative); UROBILINOGEN,URINE 0.2 (0.2-1.0)
[2024-06-14] MEDS: Sodium Chloride 0.9% 1,000 ML IV ONE (04:14)
[2024-06-14] MEDS: Ondansetron 4 MG/2 ML SDV IVPUSH ONE (04:14)
[2024-06-14] MEDS: Sodium Chloride 0.9% 10 ML Syringe FLUSH PRN (04:15)
[2024-06-14 04:23] LABS: BASOPHILS ABSOLUTE AUTO 0.1 K/mm3 (0.0-0.2); BASOPHILS PERCENT AUTO 0.7 % (0.0-1.0); EOSINOPHILS ABSOLUTE AUTO 0.2 K/mm3 (0.0-0.4); EOSINOPHILS PERCENT AUTO 2.9 % (0.0-6.0); HEMATOCRIT 42.2 % (42.0-52.0); HEMOGLOBIN 14.6 gm/dl (14.0-18.0); IMMATURE GRAN ABSOLUTE AUTO 0.02 K/mm3 (0.00-0.05); IMMATURE GRAN PERCENT AUTO 0.3 % (0.0-0.4); LYMPHOCYTES ABSOLUTE AUTO 2.8 K/mm3 (1.0-4.8); LYMPHOCYTES PERCENT AUTO 38.6 % (24.0-44.0); MEAN CORPUSCULAR HGB CONC 34.6 g/dl (32.0-36.0); MEAN CORPUSCULAR VOLUME 83.7 fl (83.0-99.0); MEAN PLATELET VOLUME 8.9 fl (9.4-12.4); MONOCYTES ABSOLUTE AUTO 0.7 K/mm3 (0.0-0.8); MONOCYTES PERCENT AUTO 9.8 % (0.0-8.0); NEUTROPHILS ABSOLUTE AUTO 3.5 K/mm3 (1.8-7.7); NEUTROPHILS PERCENT AUTO 47.7 % (41.0-71.0); PLATELET COUNT,PLT 276 K/mm3 (150-400); RED BLOOD CELL COUNT 5.04 M/mm3 (4.52-5.90); WHITE BLOOD CELL COUNT,WBC 7.34 K/mm3 (3.9-11.3)
[2024-06-14] MEDS: Acetaminophen 325 MG Tab PO ONE (04:34)
[2024-06-14 04:44] LABS: A/G RATIO 1.2 (1-2); ANION GAP 13.8 (5-15); BILIRUBIN TOTAL 0.9 mg/dL (0.2-1.0); BUN/CREATININE RATIO 15.6 (14-18); CALCIUM 9.1 mg/dL (8.5-10.1); CREATININE 0.9 mg/dL (0.7-1.3); EST CRCL DRUG DOSING (CG) 117.83 mL/min; POTASSIUM,K 3.8 mEq/L (3.5-5.1); PROTEIN TOTAL,TP 7.4 g/dl (6.4-8.2)
== END 2024-06-14 04:28 | disposition left against medical advice (07) ==
LOC: JD.ED 02:33
DX: R10.84 Generalized abdominal pain (principal); I10 Essential (primary) hypertension; E78.00 Pure hypercholesterolemia, unspecified; E66.9 Obesity, unspecified; Z79.899 Other long term (current) drug therapy; Z88.0 Allergy status to penicillin; Z68.41 Body mass index [BMI] 40.0-44.9, adult; Z53.20 Procedure and treatment not carried out because of patient's decision for unspecified reasons
CPT/HCPCS: 36415; 80053; 81003; 83690; 85025; 96374; 99285; J2405; J3490; J7030

== ENCOUNTER 2024-08-11 13:33 | Emergency (ER) | payer MEDICAID, MEDICARE ==
[2024-08-11 14:33] LABS: BASOPHILS ABSOLUTE AUTO 0.1 K/mm3 (0.0-0.2); BASOPHILS PERCENT AUTO 0.8 % (0.0-1.0); EOSINOPHILS ABSOLUTE AUTO 0.2 K/mm3 (0.0-0.4); EOSINOPHILS PERCENT AUTO 2.2 % (0.0-6.0); HEMATOCRIT 43.6 % (42.0-52.0); HEMOGLOBIN 15.5 gm/dl (14.0-18.0); IMMATURE GRAN ABSOLUTE AUTO 0.02 K/mm3 (0.00-0.05); IMMATURE GRAN PERCENT AUTO 0.3 % (0.0-0.4); LYMPHOCYTES ABSOLUTE AUTO 2.4 K/mm3 (1.0-4.8); LYMPHOCYTES PERCENT AUTO 30.8 % (24.0-44.0); MEAN CORPUSCULAR HEMOGLOBIN 29.6 pg (28.0-32.0); MEAN CORPUSCULAR HGB CONC 35.6 g/dl (32.0-36.0); MEAN CORPUSCULAR VOLUME 83.2 fl (83.0-99.0); MEAN PLATELET VOLUME 9.2 fl (9.4-12.4); MONOCYTES ABSOLUTE AUTO 0.6 K/mm3 (0.0-0.8); NEUTROPHILS ABSOLUTE AUTO 4.4 K/mm3 (1.8-7.7); NEUTROPHILS PERCENT AUTO 57.9 % (41.0-71.0); PLATELET COUNT,PLT 317 K/mm3 (150-400); RED BLOOD CELL COUNT 5.24 M/mm3 (4.52-5.90); WHITE BLOOD CELL COUNT,WBC 7.63 K/mm3 (3.9-11.3)
[2024-08-11 14:44] LABS: A/G RATIO 1.2 (1-2); ALANINE AMINOTRANSFERASE,ALT 30 U/L (16-63); ALBUMIN 4.2 g/dl (3.4-5.0); ALKALINE PHOSPHATASE 99 U/L (46-116); ANION GAP 12.8 (5-15); ASPARTATE AMNIOTRANSFERASE,AST 18 U/L (15-37); BILIRUBIN TOTAL 0.4 mg/dL (0.2-1.0); BLOOD UREA NITROGEN,BUN 11 mg/dL (7-18); BUN/CREATININE RATIO 13.8 (14-18); C-REACTIVE PROTEIN 0.44 mg/dL (<0.30); CALCIUM 9.3 mg/dL (8.5-10.1); CARBON DIOXIDE,CO2 27 mEq/L (21-32); CHLORIDE,CL 106 mEq/L (98-107); CREATININE 0.8 mg/dL (0.7-1.3); ESTIMATED GFR 121 mL/min (>60); GLUCOSE RANDOM 89 mg/dL (70-99); LIPASE 43 U/L (16-77); POTASSIUM,K 3.8 mEq/L (3.5-5.1); PROTEIN TOTAL,TP 7.6 g/dl (6.4-8.2); SODIUM,NA 142 mEq/L (136-145)
[2024-08-11] MEDS: Sodium Chloride 0.9% 1,000 ML IV ONE (15:09)
[2024-08-11] MEDS: Iopamidol 612 MG/ML 100 ML Bottle IVPUSH ONE (15:12)
[2024-08-11] MEDS: Sodium Chloride 0.9% 10 ML Syringe FLUSH PRN (15:12)
[2024-08-11] MEDS: Ketorolac 30 MG/ML SDV IVPUSH ONE (16:12)
== END 2024-08-11 17:02 | disposition home or self-care (01) ==
LOC: JD.ED 13:33
DX: K57.32 Diverticulitis of large intestine without perforation or abscess without bleeding (principal); I10 Essential (primary) hypertension; E78.00 Pure hypercholesterolemia, unspecified; E66.9 Obesity, unspecified; Z87.891 Personal history of nicotine dependence; Z79.899 Other long term (current) drug therapy; Z88.0 Allergy status to penicillin
CPT/HCPCS: 36415; 74177; 80053; 83690; 85025; 86140; 96361; 96374; 99285; J1885; J3490; J7030; Q9967; 99284

== ENCOUNTER 2024-08-17 11:09 | Emergency (ER) | payer MEDICARE, MEDICAID ==
[2024-08-17] MEDS ORDERED: Sodium Chloride 0.9% 10 ML Syringe FLUSH PRN ×2 (11:37)
[2024-08-17] MEDS: HYDROmorphone 1 MG/ML Syringe IVPUSH ONE (11:58)
[2024-08-17] MEDS: Sodium Chloride 0.9% 500 ML IV SCH (11:59)
[2024-08-17 12:04] LABS: BASOPHILS ABSOLUTE AUTO 0.1 K/mm3 (0.0-0.2); BASOPHILS PERCENT AUTO 0.8 % (0.0-1.0); EOSINOPHILS ABSOLUTE AUTO 0.1 K/mm3 (0.0-0.4); EOSINOPHILS PERCENT AUTO 2.2 % (0.0-6.0); HEMATOCRIT 47.2 % (42.0-52.0); HEMOGLOBIN 16.3 gm/dl (14.0-18.0); IMMATURE GRAN ABSOLUTE AUTO 0.01 K/mm3 (0.00-0.05); IMMATURE GRAN PERCENT AUTO 0.2 % (0.0-0.4); LYMPHOCYTES ABSOLUTE AUTO 2.1 K/mm3 (1.0-4.8); LYMPHOCYTES PERCENT AUTO 32.8 % (24.0-44.0); MEAN CORPUSCULAR HGB CONC 34.5 g/dl (32.0-36.0); MEAN CORPUSCULAR VOLUME 83.8 fl (83.0-99.0); MEAN PLATELET VOLUME 8.9 fl (9.4-12.4); MONOCYTES ABSOLUTE AUTO 0.6 K/mm3 (0.0-0.8); NEUTROPHILS ABSOLUTE AUTO 3.5 K/mm3 (1.8-7.7); PLATELET COUNT,PLT 325 K/mm3 (150-400); RED BLOOD CELL COUNT 5.63 M/mm3 (4.52-5.90); WHITE BLOOD CELL COUNT,WBC 6.31 K/mm3 (3.9-11.3)
[2024-08-17 12:13] LABS: APPEARANCE,URINE CLEAR (Clear); BILIRUBIN,URINE NEGATIVE (Negative); COLOR,URINE YELLOW (Yellow); GLUCOSE,URINE NEGATIVE (Negative); KETONES,URINE NEGATIVE (Negative); LEUKOCYTE ESTERASE,URINE NEGATIVE (Negative); NITRITE,URINE NEGATIVE (Negative); OCCULT BLOOD,URINE NEGATIVE (Negative); PROTEIN,URINE NEGATIVE (Negative); UROBILINOGEN,URINE 0.2 (0.2-1.0)
[2024-08-17 12:20] LABS: INR 0.94
[2024-08-17 12:25] LABS: A/G RATIO 1.1 (1-2); ALBUMIN 4.3 g/dl (3.4-5.0); ANION GAP 12.1 (5-15); BILIRUBIN TOTAL 0.7 mg/dL (0.2-1.0); BUN/CREATININE RATIO 12.7 (14-18); CALCIUM 9.8 mg/dL (8.5-10.1); CREATININE 1.1 mg/dL (0.7-1.3); EST CRCL DRUG DOSING (CG) 96.41 mL/min; POTASSIUM,K 4.1 mEq/L (3.5-5.1); PROTEIN TOTAL,TP 8.1 g/dl (6.4-8.2)
== END 2024-08-17 14:25 | disposition home or self-care (01) ==
LOC: JD.ED 11:09
DX: K57.32 Diverticulitis of large intestine without perforation or abscess without bleeding (principal); I10 Essential (primary) hypertension; E78.00 Pure hypercholesterolemia, unspecified; J45.909 Unspecified asthma, uncomplicated; E66.9 Obesity, unspecified; Z68.42 Body mass index [BMI] 45.0-49.9, adult; Z79.899 Other long term (current) drug therapy; Z88.0 Allergy status to penicillin
CPT/HCPCS: 36415; 80053; 81003; 82150; 83690; 85025; 85610; 96374; 99284; J1170; J7030

== ENCOUNTER 2024-09-12 13:55 | Emergency (ER) | payer MEDICARE, MEDICAID ==
[2024-09-12 14:25] LABS: BASOPHILS ABSOLUTE AUTO 0.1 K/mm3 (0.0-0.2); BASOPHILS PERCENT AUTO 0.5 % (0.0-1.0); EOSINOPHILS ABSOLUTE AUTO 0.1 K/mm3 (0.0-0.4); EOSINOPHILS PERCENT AUTO 1.1 % (0.0-6.0); HEMATOCRIT 50.3 % (42.0-52.0); HEMOGLOBIN 17.9 gm/dl (14.0-18.0); IMMATURE GRAN ABSOLUTE AUTO 0.02 K/mm3 (0.00-0.05); IMMATURE GRAN PERCENT AUTO 0.2 % (0.0-0.4); LYMPHOCYTES PERCENT AUTO 32.7 % (24.0-44.0); MEAN CORPUSCULAR HEMOGLOBIN 29.4 pg (28.0-32.0); MEAN CORPUSCULAR HGB CONC 35.6 g/dl (32.0-36.0); MEAN CORPUSCULAR VOLUME 82.6 fl (83.0-99.0); MEAN PLATELET VOLUME 8.8 fl (9.4-12.4); MONOCYTES ABSOLUTE AUTO 0.8 K/mm3 (0.0-0.8); MONOCYTES PERCENT AUTO 8.4 % (0.0-8.0); NEUTROPHILS ABSOLUTE AUTO 5.3 K/mm3 (1.8-7.7); NEUTROPHILS PERCENT AUTO 57.1 % (41.0-71.0); PLATELET COUNT,PLT 395 K/mm3 (150-400); RED BLOOD CELL COUNT 6.09 M/mm3 (4.52-5.90); WHITE BLOOD CELL COUNT,WBC 9.21 K/mm3 (3.9-11.3)
[2024-09-12] MEDS: LORazepam 1 MG Tab PO ONE ×2 (14:39→16:09)
[2024-09-12 15:13] LABS: A/G RATIO 1.2 (1-2); ANION GAP 16.6 (5-15); BUN/CREATININE RATIO 11.8 (14-18); CALCIUM 10.7 mg/dL (8.5-10.1); CREATININE 1.1 mg/dL (0.7-1.3); EST CRCL DRUG DOSING (CG) 96.41 mL/min; POTASSIUM,K 3.6 mEq/L (3.5-5.1); PROTEIN TOTAL,TP 9.2 g/dl (6.4-8.2)
[2024-09-12] MEDS: Acetaminophen 325 MG Tab PO ONE (17:02)
== END 2024-09-12 17:03 | disposition home or self-care (01) ==
LOC: JD.ED 13:55
DX: F41.0 Panic disorder [episodic paroxysmal anxiety] (principal); E78.00 Pure hypercholesterolemia, unspecified; I10 Essential (primary) hypertension; J45.909 Unspecified asthma, uncomplicated; E66.9 Obesity, unspecified; Z68.42 Body mass index [BMI] 45.0-49.9, adult; Z79.899 Other long term (current) drug therapy; Z88.0 Allergy status to penicillin
CPT/HCPCS: 36415; 80053; 85025; 99284; A9270-GY

== ENCOUNTER 2024-09-27 12:38 | Emergency (ER) | payer MEDICARE, MEDICAID ==
[2024-09-27] MEDS ORDERED: Naloxone 0.4 MG/ML SDV IVPUSH PRN ×2 (13:24→17:44)
[2024-09-27 14:41] LABS: APPEARANCE,URINE CLEAR (Clear); BILIRUBIN,URINE NEGATIVE (Negative); COLOR,URINE LIGHT YELLOW (Yellow); GLUCOSE,URINE NEGATIVE (Negative); KETONES,URINE NEGATIVE (Negative); LEUKOCYTE ESTERASE,URINE NEGATIVE (Negative); NITRITE,URINE NEGATIVE (Negative); OCCULT BLOOD,URINE NEGATIVE (Negative); PROTEIN,URINE NEGATIVE (Negative); UROBILINOGEN,URINE 0.2 (0.2-1.0)
[2024-09-27 14:42] LABS: BASOPHILS ABSOLUTE AUTO 0.1 K/mm3 (0.0-0.2); BASOPHILS PERCENT AUTO 0.8 % (0.0-1.0); EOSINOPHILS ABSOLUTE AUTO 0.2 K/mm3 (0.0-0.4); EOSINOPHILS PERCENT AUTO 2.2 % (0.0-6.0); HEMATOCRIT 43.7 % (42.0-52.0); HEMOGLOBIN 15.5 gm/dl (14.0-18.0); IMMATURE GRAN ABSOLUTE AUTO 0.01 K/mm3 (0.00-0.05); IMMATURE GRAN PERCENT AUTO 0.1 % (0.0-0.4); LYMPHOCYTES ABSOLUTE AUTO 2.8 K/mm3 (1.0-4.8); LYMPHOCYTES PERCENT AUTO 36.1 % (24.0-44.0); MEAN CORPUSCULAR HEMOGLOBIN 29.4 pg (28.0-32.0); MEAN CORPUSCULAR HGB CONC 35.5 g/dl (32.0-36.0); MEAN CORPUSCULAR VOLUME 82.8 fl (83.0-99.0); MEAN PLATELET VOLUME 8.7 fl (9.4-12.4); MONOCYTES ABSOLUTE AUTO 0.5 K/mm3 (0.0-0.8); MONOCYTES PERCENT AUTO 6.8 % (0.0-8.0); NEUTROPHILS ABSOLUTE AUTO 4.2 K/mm3 (1.8-7.7); PLATELET COUNT,PLT 329 K/mm3 (150-400); RED BLOOD CELL COUNT 5.28 M/mm3 (4.52-5.90); WHITE BLOOD CELL COUNT,WBC 7.76 K/mm3 (3.9-11.3)
[2024-09-27] MEDS: Morphine 4 MG/ML Syringe IVPUSH ONE ×2 (14:45→18:21)
[2024-09-27] MEDS: Sodium Chloride 0.9% 10 ML Syringe FLUSH PRN ×2 (14:51→14:54)
[2024-09-27] MEDS: Iopamidol 612 MG/ML 100 ML Bottle IVPUSH ONE (14:54)
[2024-09-27] MEDS: Iopamidol 612 MG/ML 30 ML SDV IVPUSH ONE (14:54)
[2024-09-27 15:07] LABS: A/G RATIO 1.2 (1-2); ALBUMIN 4.2 g/dl (3.4-5.0); ANION GAP 12.7 (5-15); BILIRUBIN TOTAL 0.6 mg/dL (0.2-1.0); BUN/CREATININE RATIO 8.8 (14-18); CALCIUM 9.6 mg/dL (8.5-10.1); CREATININE 0.8 mg/dL (0.7-1.3); EST CRCL DRUG DOSING (CG) 132.56 mL/min; MAGNESIUM 1.9 mg/dL (1.8-2.4); POTASSIUM,K 3.7 mEq/L (3.5-5.1); PROTEIN TOTAL,TP 7.8 g/dl (6.4-8.2)
[2024-09-27 18:14] LABS: C. TRACHOMATIS BY PCR NOT DETECTED; N. GONORRHOEAE BY PCR NOT DETECTED
[2024-09-27 19:30] LABS: HEPATITIS C AB NON-REACTIVE (Non-React)
[2024-09-27 19:47] LABS: RAPID PLASMA REAGIN,RPR NON-REACTIVE (NONREACTIVE)
== END 2024-09-27 19:35 | disposition home or self-care (01) ==
LOC: JD.ED 12:38
DX: R10.9 Unspecified abdominal pain (principal); K62.89 Other specified diseases of anus and rectum; E78.00 Pure hypercholesterolemia, unspecified; I10 Essential (primary) hypertension; E66.9 Obesity, unspecified; Z79.899 Other long term (current) drug therapy; Z88.0 Allergy status to penicillin
CPT/HCPCS: 36415; 74177; 80053; 81003; 83605; 83735; 85025; 86592; 86803; 87491; 87591; 96374; 96376; 99284; J2270; J3490; Q9967

== ENCOUNTER 2024-10-07 09:53 | Emergency (ER) | payer MEDICARE, MEDICAID | END 2024-10-07 13:12 | disposition home or self-care (01) | LOC: JD.ED 09:53 | DX: M53.3 Sacrococcygeal disorders, not elsewhere classified (principal); I10 Essential (primary) hypertension; J45.909 Unspecified asthma, uncomplicated; E66.9 Obesity, unspecified; E78.00 Pure hypercholesterolemia, unspecified; Z90.89 Acquired absence of other organs; Z88.0 Allergy status to penicillin; Z79.51 Long term (current) use of inhaled steroids; Z79.899 Other long term (current) drug therapy; Z68.42 Body mass index [BMI] 45.0-49.9, adult | CPT/HCPCS: 72220; 72220-26; 99283; A9270-GY ==

== ENCOUNTER 2024-10-17 12:40 | Emergency (ER) | payer MEDICARE, MEDICAID ==
[2024-10-17] MEDS: HYDROmorphone 1 MG/ML Syringe IM ONE (13:12)
== END 2024-10-17 13:42 | disposition home or self-care (01) ==
LOC: JD.ED 12:40
DX: K57.92 Diverticulitis of intestine, part unspecified, without perforation or abscess without bleeding (principal); I10 Essential (primary) hypertension; E78.00 Pure hypercholesterolemia, unspecified; E66.9 Obesity, unspecified; Z79.899 Other long term (current) drug therapy; Z88.0 Allergy status to penicillin; Z68.42 Body mass index [BMI] 45.0-49.9, adult
CPT/HCPCS: 96372; 99283; J1171

== ENCOUNTER 2024-10-29 11:24 | Emergency (ER) | payer MEDICARE, MEDICAID ==
[2024-10-29] MEDS: Ketorolac 30 MG/ML SDV IM ONE (14:58)
[2024-10-29] MEDS: Acetaminophen/Codeine 300-30 MG Tab PO ONE (14:59)
== END 2024-10-29 15:35 | disposition home or self-care (01) ==
LOC: JD.ED 11:24
DX: K08.89 Other specified disorders of teeth and supporting structures (principal); I10 Essential (primary) hypertension; E78.00 Pure hypercholesterolemia, unspecified; J45.909 Unspecified asthma, uncomplicated; E66.9 Obesity, unspecified; Z90.89 Acquired absence of other organs; Z88.0 Allergy status to penicillin; Z79.51 Long term (current) use of inhaled steroids; Z79.891 Long term (current) use of opiate analgesic; Z79.890 Hormone replacement therapy; Z79.899 Other long term (current) drug therapy; Z68.42 Body mass index [BMI] 45.0-49.9, adult
CPT/HCPCS: 96372; 99282; A9270-GY; J1885

== ENCOUNTER 2024-10-30 10:51 | Emergency (ER) | payer MEDICARE, MEDICAID ==
[2024-10-30 11:52] LABS: BASOPHILS ABSOLUTE AUTO 0.1 K/mm3 (0.0-0.2); BASOPHILS PERCENT AUTO 0.8 % (0.0-1.0); EOSINOPHILS ABSOLUTE AUTO 0.3 K/mm3 (0.0-0.4); HEMATOCRIT 40.8 % (42.0-52.0); HEMOGLOBIN 14.1 gm/dl (14.0-18.0); IMMATURE GRAN ABSOLUTE AUTO 0.03 K/mm3 (0.00-0.05); IMMATURE GRAN PERCENT AUTO 0.4 % (0.0-0.4); LYMPHOCYTES ABSOLUTE AUTO 2.6 K/mm3 (1.0-4.8); LYMPHOCYTES PERCENT AUTO 35.5 % (24.0-44.0); MEAN CORPUSCULAR HEMOGLOBIN 29.6 pg (28.0-32.0); MEAN CORPUSCULAR HGB CONC 34.6 g/dl (32.0-36.0); MEAN CORPUSCULAR VOLUME 85.7 fl (83.0-99.0); MEAN PLATELET VOLUME 8.8 fl (9.4-12.4); MONOCYTES ABSOLUTE AUTO 0.6 K/mm3 (0.0-0.8); MONOCYTES PERCENT AUTO 8.6 % (0.0-8.0); NEUTROPHILS ABSOLUTE AUTO 3.7 K/mm3 (1.8-7.7); NEUTROPHILS PERCENT AUTO 50.7 % (41.0-71.0); PLATELET COUNT,PLT 313 K/mm3 (150-400); RED BLOOD CELL COUNT 4.76 M/mm3 (4.52-5.90); WHITE BLOOD CELL COUNT,WBC 7.32 K/mm3 (3.9-11.3)
[2024-10-30 11:59] LABS: APPEARANCE,URINE CLEAR (Clear); BILIRUBIN,URINE NEGATIVE (Negative); COLOR,URINE YELLOW (Yellow); GLUCOSE,URINE NEGATIVE (Negative); KETONES,URINE NEGATIVE (Negative); LEUKOCYTE ESTERASE,URINE NEGATIVE (Negative); NITRITE,URINE NEGATIVE (Negative); OCCULT BLOOD,URINE NEGATIVE (Negative); PROTEIN,URINE NEGATIVE (Negative); UROBILINOGEN,URINE 0.2 (0.2-1.0)
[2024-10-30 12:12] LABS: A/G RATIO 1.2 (1-2); ALBUMIN 3.9 g/dl (3.4-5.0); ANION GAP 13.1 (5-15); BILIRUBIN TOTAL 0.4 mg/dL (0.2-1.0); C-REACTIVE PROTEIN 0.56 mg/dL (<0.30); EST CRCL DRUG DOSING (CG) 106.05 mL/min; POTASSIUM,K 4.1 mEq/L (3.5-5.1); PROTEIN TOTAL,TP 7.3 g/dl (6.4-8.2)
[2024-10-30] MEDS: Acetaminophen/Codeine 300-30 MG Tab PO ONE (13:09)
== END 2024-10-30 13:13 | disposition home or self-care (01) ==
LOC: JD.ED 10:51
DX: K08.89 Other specified disorders of teeth and supporting structures (principal); K59.00 Constipation, unspecified; I10 Essential (primary) hypertension; E78.00 Pure hypercholesterolemia, unspecified; J45.909 Unspecified asthma, uncomplicated; E66.9 Obesity, unspecified; Z90.89 Acquired absence of other organs; Z88.0 Allergy status to penicillin; Z79.51 Long term (current) use of inhaled steroids; Z79.899 Other long term (current) drug therapy; Z68.42 Body mass index [BMI] 45.0-49.9, adult
CPT/HCPCS: 36415; 74018; 80053; 81003; 85025; 86140; 99283; A9270

== ENCOUNTER 2024-11-01 09:12 | Emergency (ER) | payer MEDICARE, MEDICAID ==
[2024-11-01 14:02] LABS: BASOPHILS ABSOLUTE AUTO 0.1 K/mm3 (0.0-0.2); BASOPHILS PERCENT AUTO 0.8 % (0.0-1.0); EOSINOPHILS ABSOLUTE AUTO 0.2 K/mm3 (0.0-0.4); EOSINOPHILS PERCENT AUTO 2.4 % (0.0-6.0); HEMATOCRIT 42.7 % (42.0-52.0); HEMOGLOBIN 15.3 gm/dl (14.0-18.0); IMMATURE GRAN ABSOLUTE AUTO 0.02 K/mm3 (0.00-0.05); IMMATURE GRAN PERCENT AUTO 0.3 % (0.0-0.4); LYMPHOCYTES ABSOLUTE AUTO 2.1 K/mm3 (1.0-4.8); MEAN CORPUSCULAR HGB CONC 35.8 g/dl (32.0-36.0); MEAN CORPUSCULAR VOLUME 83.7 fl (83.0-99.0); MEAN PLATELET VOLUME 8.8 fl (9.4-12.4); MONOCYTES ABSOLUTE AUTO 0.4 K/mm3 (0.0-0.8); MONOCYTES PERCENT AUTO 6.1 % (0.0-8.0); NEUTROPHILS ABSOLUTE AUTO 3.5 K/mm3 (1.8-7.7); NEUTROPHILS PERCENT AUTO 56.4 % (41.0-71.0); PLATELET COUNT,PLT 322 K/mm3 (150-400); WHITE BLOOD CELL COUNT,WBC 6.27 K/mm3 (3.9-11.3)
[2024-11-01 14:24] LABS: A/G RATIO 1.2 (1-2); ALBUMIN 4.4 g/dl (3.4-5.0); BILIRUBIN TOTAL 0.5 mg/dL (0.2-1.0); BUN/CREATININE RATIO 13.3 (14-18); C-REACTIVE PROTEIN 0.36 mg/dL (<0.30); CALCIUM 9.7 mg/dL (8.5-10.1); CREATININE 0.9 mg/dL (0.7-1.3); EST CRCL DRUG DOSING (CG) 117.83 mL/min; PROTEIN TOTAL,TP 8.1 g/dl (6.4-8.2)
[2024-11-01] MEDS: Acetaminophen/HYDROcodone 325-5 MG Tab PO ONE (14:28)
== END 2024-11-01 15:30 | disposition home or self-care (01) ==
LOC: JD.ED 09:12
DX: K59.00 Constipation, unspecified (principal); K08.89 Other specified disorders of teeth and supporting structures; I10 Essential (primary) hypertension; E78.00 Pure hypercholesterolemia, unspecified; J45.909 Unspecified asthma, uncomplicated; E66.9 Obesity, unspecified; Z90.89 Acquired absence of other organs; Z88.0 Allergy status to penicillin; Z79.51 Long term (current) use of inhaled steroids; Z79.899 Other long term (current) drug therapy; Z68.42 Body mass index [BMI] 45.0-49.9, adult
CPT/HCPCS: 36415; 80053; 85025; 86140; 99284; A9270

== ENCOUNTER 2024-11-13 10:29 | Emergency (ER) | payer MEDICARE, MEDICAID ==
[2024-11-13] MEDS: Acetaminophen/oxyCODONE 325-5 MG Tab PO ONE (12:05)
== END 2024-11-13 12:08 | disposition home or self-care (01) ==
LOC: JD.ED 10:29
DX: S90.02XA Contusion of left ankle, initial encounter (principal); S80.02XA Contusion of left knee, initial encounter; I10 Essential (primary) hypertension; E78.00 Pure hypercholesterolemia, unspecified; E66.9 Obesity, unspecified; J45.909 Unspecified asthma, uncomplicated; Z90.49 Acquired absence of other specified parts of digestive tract; Z79.899 Other long term (current) drug therapy; Z88.0 Allergy status to penicillin; W00.0XXA Fall on same level due to ice and snow, initial encounter; Z68.42 Body mass index [BMI] 45.0-49.9, adult
CPT/HCPCS: 73590; 73620; 99284; A9270

== ENCOUNTER 2024-12-06 08:32 | Emergency (ER) | payer MEDICAID, MEDICARE ==
[2024-12-06 09:46] LABS: BASOPHILS PERCENT AUTO 0.6 % (0.0-1.0); EOSINOPHILS ABSOLUTE AUTO 0.1 K/mm3 (0.0-0.4); EOSINOPHILS PERCENT AUTO 1.9 % (0.0-6.0); HEMATOCRIT 41.5 % (42.0-52.0); HEMOGLOBIN 14.3 gm/dl (14.0-18.0); IMMATURE GRAN ABSOLUTE AUTO 0.01 K/mm3 (0.00-0.05); IMMATURE GRAN PERCENT AUTO 0.1 % (0.0-0.4); LYMPHOCYTES ABSOLUTE AUTO 1.8 K/mm3 (1.0-4.8); LYMPHOCYTES PERCENT AUTO 26.4 % (24.0-44.0); MEAN CORPUSCULAR HEMOGLOBIN 29.1 pg (28.0-32.0); MEAN CORPUSCULAR HGB CONC 34.5 g/dl (32.0-36.0); MEAN CORPUSCULAR VOLUME 84.3 fl (83.0-99.0); MEAN PLATELET VOLUME 8.9 fl (9.4-12.4); MONOCYTES ABSOLUTE AUTO 0.5 K/mm3 (0.0-0.8); MONOCYTES PERCENT AUTO 7.7 % (0.0-8.0); NEUTROPHILS ABSOLUTE AUTO 4.2 K/mm3 (1.8-7.7); NEUTROPHILS PERCENT AUTO 63.3 % (41.0-71.0); PLATELET COUNT,PLT 356 K/mm3 (150-400); RED BLOOD CELL COUNT 4.92 M/mm3 (4.52-5.90); WHITE BLOOD CELL COUNT,WBC 6.71 K/mm3 (3.9-11.3)
[2024-12-06 09:57] LABS: LACTIC ACID 0.8 mmol/L (0.4-2.0)
[2024-12-06 10:04] LABS: A/G RATIO 1.2 (1-2); ALBUMIN 4.3 g/dl (3.4-5.0); ANION GAP 15.6 (5-15); BILIRUBIN TOTAL 0.7 mg/dL (0.2-1.0); BUN/CREATININE RATIO 11.1 (14-18); C-REACTIVE PROTEIN 0.84 mg/dL (<0.30); CALCIUM 9.5 mg/dL (8.5-10.1); CREATININE 0.9 mg/dL (0.7-1.3); EST CRCL DRUG DOSING (CG) 116.74 mL/min; MAGNESIUM 1.8 mg/dL (1.8-2.4); POTASSIUM,K 3.6 mEq/L (3.5-5.1); PROTEIN TOTAL,TP 7.8 g/dl (6.4-8.2)
[2024-12-06] MEDS: LORazepam 1 MG Tab PO ONE (10:52)
[2024-12-06] MEDS: Magnesium Hydroxide 400 MG/5 ML Susp 30 ML Cup PO ONE (10:53)
[2024-12-06 11:20] LABS: APPEARANCE,URINE CLEAR (Clear); BILIRUBIN,URINE NEGATIVE (Negative); COLOR,URINE YELLOW (Yellow); GLUCOSE,URINE NEGATIVE (Negative); KETONES,URINE NEGATIVE (Negative); LEUKOCYTE ESTERASE,URINE NEGATIVE (Negative); NITRITE,URINE NEGATIVE (Negative); OCCULT BLOOD,URINE NEGATIVE (Negative); PROTEIN,URINE NEGATIVE (Negative); UROBILINOGEN,URINE 0.2 (0.2-1.0)
[2024-12-06 11:21] LABS: BARBITURATE SCREEN,URINE NEGATIVE (CUTOFF=200); BENZODIAZEPINES SCREEN,URINE NEGATIVE (CUTOFF=150); BUPRENORPHINE SCREEN,URINE NEGATIVE (CUTOFF=10); METHADONE SCREEN, URINE NEGATIVE (CUT0FF=200); METHAMPHETAMINES SCREEN, URINE NEGATIVE (CUTOFF=500); OXYCODONE SCREEN,URINE NEGATIVE (CUT0FF=100); THC SCREEN,URINE 20 NG/ML PRESUMPTIVE POSITIVE (CUTOFF=50)
[2024-12-06 11:30] LABS: AMPHETAMINES SCREEN, URINE PRESUMPTIVE POSITIVE (CUTOFF=500)
== END 2024-12-06 12:02 | disposition home or self-care (01) ==
LOC: JD.ED 08:32
DX: K59.00 Constipation, unspecified (principal); F41.9 Anxiety disorder, unspecified; I10 Essential (primary) hypertension; E78.00 Pure hypercholesterolemia, unspecified; Z88.0 Allergy status to penicillin; Z79.899 Other long term (current) drug therapy
CPT/HCPCS: 36415; 80053; 80306; 81003; 83605; 83735; 85025; 86140; 99283; A9270

== ENCOUNTER 2025-02-14 10:34 | Emergency (ER) | payer MEDICAID, MEDICARE ==
[2025-02-14] MEDS: LORazepam 2 MG/ML SDV IM ONE (12:27)
[2025-02-14] MEDS: LORazepam 1 MG Tab PO ONE (12:55)
[2025-02-14] MEDS: QUEtiapine 100 MG Tab PO STA (12:55)
== END 2025-02-14 13:02 | disposition home or self-care (01) ==
LOC: JD.ED 10:34
DX: F41.9 Anxiety disorder, unspecified (principal); G47.00 Insomnia, unspecified; J45.909 Unspecified asthma, uncomplicated; I10 Essential (primary) hypertension; E78.00 Pure hypercholesterolemia, unspecified; E66.9 Obesity, unspecified; Z88.0 Allergy status to penicillin; Z79.899 Other long term (current) drug therapy; Z68.31 Body mass index [BMI] 31.0-31.9, adult
CPT/HCPCS: 96372; 99284; A9270; J2060; 99283

== ENCOUNTER 2025-03-04 10:24 | Emergency (ER) | payer MEDICAID, MEDICARE | END 2025-03-04 11:31 | disposition home or self-care (01) | LOC: JD.ED 10:24 | DX: F41.9 Anxiety disorder, unspecified (principal); I10 Essential (primary) hypertension; E78.00 Pure hypercholesterolemia, unspecified; J45.909 Unspecified asthma, uncomplicated; Z88.0 Allergy status to penicillin; Z79.899 Other long term (current) drug therapy; Z79.51 Long term (current) use of inhaled steroids | CPT/HCPCS: 99283 ==

== ENCOUNTER 2025-04-17 14:37 | Emergency (ER) | payer MEDICARE, MEDICAID ==
[2025-04-17] MEDS: Ketorolac 60 MG/2 ML SDV IM ONE (15:22)
[2025-04-17] MEDS: LORazepam 1 MG Tab PO ONE (15:22)
[2025-04-17] MEDS: Metoclopramide 10 MG/2 ML SDV IM ONE (15:22)
[2025-04-17] MEDS: QUEtiapine 25 MG Tab PO ONE (15:23)
== END 2025-04-17 15:45 | disposition home or self-care (01) ==
LOC: JD.ED 14:37
DX: G43.909 Migraine, unspecified, not intractable, without status migrainosus (principal); I10 Essential (primary) hypertension; E78.00 Pure hypercholesterolemia, unspecified; J45.909 Unspecified asthma, uncomplicated; E66.9 Obesity, unspecified; Z68.42 Body mass index [BMI] 45.0-49.9, adult; Z88.0 Allergy status to penicillin; Z79.51 Long term (current) use of inhaled steroids; Z79.899 Other long term (current) drug therapy
CPT/HCPCS: 96372; 99283; A9270; J1885; J2765

== ENCOUNTER 2025-06-12 14:07 | Emergency (ER) | payer MEDICARE, MEDICAID ==
[2025-06-12] MEDS ORDERED: Sodium Chloride 0.9% 10 ML Syringe FLUSH PRN (14:42)
[2025-06-12 14:47] LABS: BASOPHILS ABSOLUTE AUTO 0.0 K/mm3 (0.0-0.2); BASOPHILS PERCENT AUTO 0.6 % (0.0-1.0); EOSINOPHILS ABSOLUTE AUTO 0.2 K/mm3 (0.0-0.4); EOSINOPHILS PERCENT AUTO 2.6 % (0.0-6.0); IMMATURE GRAN ABSOLUTE AUTO 0.02 K/mm3 (0.00-0.05); IMMATURE GRAN PERCENT AUTO 0.3 % (0.0-0.4); LYMPHOCYTES ABSOLUTE AUTO 2.2 K/mm3 (1.0-4.8); LYMPHOCYTES PERCENT AUTO 35.1 % (24.0-44.0); MEAN PLATELET VOLUME 9.0 fl (9.4-12.4); MONOCYTES ABSOLUTE AUTO 0.6 K/mm3 (0.0-0.8); MONOCYTES PERCENT AUTO 9.0 % (0.0-8.0); NEUTROPHILS ABSOLUTE AUTO 3.2 K/mm3 (1.8-7.7); NEUTROPHILS PERCENT AUTO 52.4 % (41.0-71.0); NRBC ABSOLUTE 0.00 (0.00-0.02); NRBC PERCENT 0.0 % (0.0-0.2); PLATELET COUNT,PLT 370 K/mm3 (150-400); RED BLOOD CELL COUNT 5.26 M/mm3 (4.52-5.90); WHITE BLOOD CELL COUNT,WBC 6.19 K/mm3 (3.9-11.3)
[2025-06-12] MEDS: LORazepam 2 MG/ML SDV IVPUSH ONE (14:52)
[2025-06-12 15:07] LABS: A/G RATIO 1.3 (1-2); ALANINE AMINOTRANSFERASE,ALT 65.0 U/L (16-63); ASPARTATE AMNIOTRANSFERASE,AST 34.0 U/L (15-37); BILIRUBIN TOTAL 0.5 mg/dL (0.2-1.0); BLOOD UREA NITROGEN,BUN 14.0 mg/dL (7-18); CARBON DIOXIDE,CO2 26.0 mEq/L (21-32); CHLORIDE,CL 104.0 mEq/L (98-107); CREATININE 1.0 mg/dL (0.7-1.3); EST CRCL DRUG DOSING (CG) 115.32 mL/min; ESTIMATED GFR 102.0 mL/min (>60); GLUCOSE RANDOM 110.0 mg/dL (70-99); POTASSIUM,K 3.7 mEq/L (3.5-5.1); PROTEIN TOTAL,TP 8.1 g/dl (6.4-8.2); SODIUM,NA 141.0 mEq/L (136-145)
[2025-06-12] MEDS: Sodium Chloride 0.9% 10 ML Syringe FLUSH ONE (15:59)
[2025-06-12] MEDS: Iopamidol 612 MG/ML 100 ML Bottle IVPUSH ONE (15:59)
[2025-06-12] MEDS: Ondansetron 4 MG/2 ML SDV IVPUSH ONE (16:54)
== END 2025-06-12 17:12 | disposition home or self-care (01) ==
LOC: JD.ED 14:07
DX: F41.9 Anxiety disorder, unspecified (principal); R10.9 Unspecified abdominal pain; I10 Essential (primary) hypertension; E78.00 Pure hypercholesterolemia, unspecified; E66.9 Obesity, unspecified; J45.909 Unspecified asthma, uncomplicated; Z88.0 Allergy status to penicillin; Z79.899 Other long term (current) drug therapy
CPT/HCPCS: 36415; 74177; 80053; 83690; 85025; 86140; 96361; 96374; 96375; 99284; A9270; J2060; J2405; J7030; Q9967; 99283

== ENCOUNTER 2025-09-06 07:07 | Emergency (ER) | payer MEDICARE, MEDICAID ==
[2025-09-06] MEDS: Ondansetron 4 MG/2 ML SDV IVPUSH ONE (08:12)
[2025-09-06 08:13] LABS: BASOPHILS ABSOLUTE AUTO 0.0 K/mm3 (0.0-0.2); BASOPHILS PERCENT AUTO 0.5 % (0.0-1.0); EOSINOPHILS ABSOLUTE AUTO 0.2 K/mm3 (0.0-0.4); EOSINOPHILS PERCENT AUTO 2.1 % (0.0-6.0); IMMATURE GRAN ABSOLUTE AUTO 0.02 K/mm3 (0.00-0.05); IMMATURE GRAN PERCENT AUTO 0.2 % (0.0-0.4); LYMPHOCYTES ABSOLUTE AUTO 1.9 K/mm3 (1.0-4.8); LYMPHOCYTES PERCENT AUTO 23.2 % (24.0-44.0); MEAN PLATELET VOLUME 9.1 fl (9.4-12.4); MONOCYTES ABSOLUTE AUTO 0.8 K/mm3 (0.0-0.8); MONOCYTES PERCENT AUTO 10.2 % (0.0-8.0); NEUTROPHILS ABSOLUTE AUTO 5.2 K/mm3 (1.8-7.7); NEUTROPHILS PERCENT AUTO 63.8 % (41.0-71.0); NRBC ABSOLUTE 0.00 (0.00-0.02); NRBC PERCENT 0.0 % (0.0-0.2); PLATELET COUNT,PLT 321 K/mm3 (150-400); RED BLOOD CELL COUNT 4.85 M/mm3 (4.52-5.90); WHITE BLOOD CELL COUNT,WBC 8.16 K/mm3 (3.9-11.3)
[2025-09-06] MEDS: Sodium Chloride 0.9% 10 ML Syringe FLUSH ONE (08:14)
[2025-09-06] MEDS: Iopamidol 612 MG/ML 100 ML Bottle IVPUSH ONE (08:30)
[2025-09-06] MEDS: Sodium Chloride 0.9% 10 ML Syringe FLUSH PRN (08:30)
[2025-09-06] MEDS: Iopamidol 612 MG/ML 30 ML SDV IVPUSH ONE (08:30)
[2025-09-06 08:43] LABS: A/G RATIO 1.1 (1-2); ALANINE AMINOTRANSFERASE,ALT 58.0 U/L (16-63); ASPARTATE AMNIOTRANSFERASE,AST 24.0 U/L (15-37); BILIRUBIN TOTAL 0.8 mg/dL (0.2-1.0); BLOOD UREA NITROGEN,BUN 14.0 mg/dL (7-18); CARBON DIOXIDE,CO2 28.0 mEq/L (21-32); CHLORIDE,CL 104.0 mEq/L (98-107); CREATININE 1.0 mg/dL (0.7-1.3); EST CRCL DRUG DOSING (CG) 105.07 mL/min; ESTIMATED GFR 102.0 mL/min (>60); GLUCOSE RANDOM 95.0 mg/dL (70-99); POTASSIUM,K 3.3 mEq/L (3.5-5.1); PROTEIN TOTAL,TP 7.8 g/dl (6.4-8.2); SODIUM,NA 141.0 mEq/L (136-145)
[2025-09-06] MEDS: Levofloxacin/Dextrose 5%-Water 500 MG in Premix Bag 1 BAG IV ONE (09:53)
[2025-09-06] MEDS: metroNIDAZOLE/Normal Saline 500 MG in Premix Bag 1 BAG IV ONE (09:54)
[2025-09-06 10:38] LABS: APPEARANCE,URINE CLEAR (Clear); GLUCOSE,URINE NEGATIVE (Negative); OCCULT BLOOD,URINE NEGATIVE (Negative)
[2025-09-06 11:03] LABS: SQUAMOUS EPITHELIAL CELLS,UR 0-5 /hpf (0-5)
== END 2025-09-06 11:05 | disposition home or self-care (01) ==
LOC: JD.ED 07:07
DX: K57.32 Diverticulitis of large intestine without perforation or abscess without bleeding (principal); E78.00 Pure hypercholesterolemia, unspecified; I10 Essential (primary) hypertension; J45.909 Unspecified asthma, uncomplicated; Z88.0 Allergy status to penicillin; Z79.899 Other long term (current) drug therapy
CPT/HCPCS: 36415; 74177; 74177-26; 80053; 81001; 83690; 85025; 96361; 96365; 96368; 96374; 96375; 99284-25; J1171; J1836; J1956; J2405; J7030; Q9967

== ENCOUNTER 2025-09-19 11:57 | Emergency (ER) | payer MEDICAID, MEDICARE ==
[2025-09-19] MEDS ORDERED: Sodium Chloride 0.9% 10 ML Syringe FLUSH PRN (12:09)
[2025-09-19 12:16] LABS: BASOPHILS ABSOLUTE AUTO 0.1 K/mm3 (0.0-0.2); BASOPHILS PERCENT AUTO 0.7 % (0.0-1.0); EOSINOPHILS ABSOLUTE AUTO 0.2 K/mm3 (0.0-0.4); EOSINOPHILS PERCENT AUTO 3.4 % (0.0-6.0); IMMATURE GRAN ABSOLUTE AUTO 0.02 K/mm3 (0.00-0.05); IMMATURE GRAN PERCENT AUTO 0.3 % (0.0-0.4); LYMPHOCYTES ABSOLUTE AUTO 1.6 K/mm3 (1.0-4.8); LYMPHOCYTES PERCENT AUTO 22.4 % (24.0-44.0); MEAN PLATELET VOLUME 8.9 fl (9.4-12.4); MONOCYTES ABSOLUTE AUTO 0.7 K/mm3 (0.0-0.8); MONOCYTES PERCENT AUTO 10.2 % (0.0-8.0); NEUTROPHILS ABSOLUTE AUTO 4.5 K/mm3 (1.8-7.7); NEUTROPHILS PERCENT AUTO 63.0 % (41.0-71.0); NRBC ABSOLUTE 0.00 (0.00-0.02); NRBC PERCENT 0.0 % (0.0-0.2); PLATELET COUNT,PLT 537 K/mm3 (150-400); RED BLOOD CELL COUNT 4.64 M/mm3 (4.52-5.90); WHITE BLOOD CELL COUNT,WBC 7.14 K/mm3 (3.9-11.3)
[2025-09-19] MEDS ORDERED: Naloxone 0.4 MG/ML SDV IVPUSH PRN (12:16)
[2025-09-19 12:43] LABS: APPEARANCE,URINE CLEAR (Clear); GLUCOSE,URINE NEGATIVE (Negative); OCCULT BLOOD,URINE NEGATIVE (Negative)
[2025-09-19 12:47] LABS: A/G RATIO 0.6 (1-2); ALANINE AMINOTRANSFERASE,ALT 28.0 U/L (16-63); ASPARTATE AMNIOTRANSFERASE,AST 18.0 U/L (15-37); BILIRUBIN TOTAL 0.4 mg/dL (0.2-1.0); BLOOD UREA NITROGEN,BUN 13.0 mg/dL (7-18); CARBON DIOXIDE,CO2 27.0 mEq/L (21-32); CHLORIDE,CL 101.0 mEq/L (98-107); CREATININE 1.0 mg/dL (0.7-1.3); EST CRCL DRUG DOSING (CG) 105.07 mL/min; ESTIMATED GFR 102.0 mL/min (>60); GLUCOSE RANDOM 106.0 mg/dL (70-99); POTASSIUM,K 3.8 mEq/L (3.5-5.1); PROTEIN TOTAL,TP 8.2 g/dl (6.4-8.2); SODIUM,NA 140.0 mEq/L (136-145)
[2025-09-19 12:51] LABS: BUPRENORPHINE SCREEN,URINE NEGATIVE (CUTOFF=10); METHADONE SCREEN, URINE NEGATIVE (CUT0FF=200); METHAMPHETAMINES SCREEN, URINE NEGATIVE (CUTOFF=500); OXYCODONE SCREEN,URINE NEGATIVE (CUT0FF=100); THC SCREEN,URINE 20 NG/ML PRESUMPTIVE POSITIVE (CUTOFF=50)
[2025-09-19 12:52] LABS: AMPHETAMINES SCREEN, URINE PRESUMPTIVE POSITIVE (CUTOFF=500)
[2025-09-19] MEDS: Iopamidol 612 MG/ML 30 ML SDV IVPUSH ONE (12:58)
[2025-09-19] MEDS: Iopamidol 612 MG/ML 100 ML Bottle IVPUSH ONE (12:59)
[2025-09-19] MEDS: Sodium Chloride 0.9% 10 ML Syringe FLUSH PRN (12:59)
[2025-09-19 13:02] LABS: SQUAMOUS EPITHELIAL CELLS,UR 0-5 /hpf (0-5)
[2025-09-19] MEDS: metroNIDAZOLE/Normal Saline 500 MG in Premix Bag 1 BAG IV ONE (18:05)
[2025-09-19] MEDS: Levofloxacin/Dextrose 5%-Water 750 MG in Premix Bag 1 BAG IV ONE (18:05)
[2025-09-19] MEDS: Ondansetron 4 MG/2 ML SDV IVPUSH ONE (19:02)
== END 2025-09-19 19:03 ==
LOC: JD.ED 11:57
DX: K65.1 Peritoneal abscess (principal); R79.89 Other specified abnormal findings of blood chemistry; K76.0 Fatty (change of) liver, not elsewhere classified; R16.2 Hepatomegaly with splenomegaly, not elsewhere classified; E78.00 Pure hypercholesterolemia, unspecified; I10 Essential (primary) hypertension; J45.909 Unspecified asthma, uncomplicated; E66.9 Obesity, unspecified; Z88.0 Allergy status to penicillin; Z79.899 Other long term (current) drug therapy; Z68.42 Body mass index [BMI] 45.0-49.9, adult
CPT/HCPCS: 36415; 74177; 80053; 80306; 81001; 83690; 85025; 86140; 96361; 96365; 96368; 96375; 96376; 99285; J1836; J1956; J2405; J7030; Q9967; J1171